=== PATIENT | male | born 1980 | race Caucasian/White ===

== ENCOUNTER 2016-11-16 21:05 | Emergency (ER) | payer OTHER ==
[2016-11-16 21:22] VITALS: TEMP 98.7
--- NOTE | 2016-11-16 21:47 | ED ---
General Adult HPI - General Chief complaint: Dizziness Stated complaint: Dizziness,Nosebleeds Time Seen by Provider: 11/16/16 21:20 Source: patient, RN notes reviewed, old records reviewed Mode of arrival: ambulatory Limitations: no limitations - History of Present Illness Initial comments: Chief complaint and history of present illness this is a 36-year-old male to complaint of right-sided nasal bleeding at up 3 times today. Currently under control. Patient reports this is been a young child he's always had right- sided nasal bleeding. - Related Data Home Medications Medication Instructions Recorded Confirmed No Known Home Medications [No 11/16/16 11/16/16 Known Home Medications] Allergies Allergy/AdvReac Type Severity Reaction Status Date / Time No Known Allergies Allergy Verified 11/16/16 21:22 Review of Systems ROS Statement: Those systems with pertinent positive or pertinent negative responses have been documented in the HPI. Review of systems. No headache or visual acuity changes no current epistaxis. No sore throat chest pain shows breath GI/ problems no neuro deficits. All systems are reviewed. Past medical problems significant for asthma hypertension and memory impairment. The patient reports he does not take any medication for his blood pressure. The patient also has a history of anxiety attacks he denies having any of late and does not take any medications for does not follow-up for. The patient is a former smoker denies alcohol use. Family history noncontributory. No known ALLERGIES ROS Other: All systems not noted in ROS Statement are negative. Past Medical History Past Medical History: Asthma, Hypertension, Memory Impairment Additional Past Medical History / Comment(s): back pain, anxiety attacks, arthritis in back History of Any Multi-Drug Resistant Organisms: None Reported Past Surgical History: No Surgical Hx Reported Past Anesthesia/Blood Transfusion Reactions: No Reported Reaction Past Psychological History: Anxiety, Panic Disorder Smoking Status: Former smoker Past Alcohol Use History: None Reported Past Drug Use History: None Reported General Exam - General Exam Comments Initial Comments: General: The patient is awake and alert, in no distress, and does not appear acutely ill. Here because of bleeding from the right nares which controlled. The patient is morbidly obese weighing 400 pounds. Eye: Pupils are equal, round and reactive to light, extra-ocular movements are intact ; there is normal conjunctiva bilaterally. No signs of icterus. Ears, nose, mouth and throat: There are moist mucous membranes and no oral lesions. Patient has 1 small spot on the inner anterior Them as a small blood clot. This area was cauterized with silver nitrate. Neck: The neck is supple, there is no tenderness . Cardiovascular: There is a regular rate and rhythm. No murmur, rub or gallop is appreciated. Respiratory: Lungs are clear to auscultation, respirations are non-labored, breath sounds are equal. No wheezes, stridor, rales, or rhonchi. Gastrointestinal: No complaint of nausea vomiting or diarrhea Back: No complaint of back pain no weakness. No neuro deficits. Alert and oriented. Limitations: no limitations Course Vital Signs 11/16/16 21:20 Temperature 98.7 F Pulse Rate 108 H Respiratory 20 Rate Blood Pressure 162/77 O2 Sat by Pulse 98 Oximetry Procedures - Procedures Initial comment: Over nitrate sticks were used to cauterize the small spot on the inner right septum. Patient was observed. Dr. Kelley Medical Decision Making - Medical Decision Making Medical decision-making. After the septum was cauterized with silver nitrate the patient spent half hour without any bleeding. Don't be discharged to follow -up with family physician or return emergency room as needed. Disposition Clinical Impression: Anterior epistaxis Disposition: HOME SELF-CARE Condition: Stable Instructions: Nosebleed (ED) Additional Instructions: Return emergency room as needed use nasal clamp as directed. Follow-up family physician. Time of Disposition: 22:22
[2016-11-16 22:29] VITALS: BP 153/73; PULSE 100; RESP 18
== END 2016-11-16 22:29 | disposition home or self-care (01) ==
LOC: EC 21:05
DX: R04.0 Epistaxis (principal); R42 Dizziness and giddiness; E66.01 Morbid (severe) obesity due to excess calories; Z87.891 Personal history of nicotine dependence; Z68.44 Body mass index [BMI] 60.0-69.9, adult
CPT/HCPCS: 30901; 99284

== ENCOUNTER 2017-06-16 15:37 | Emergency (ER) | payer OTHER ==
[2017-06-16 15:43] VITALS: BP 172/91; PULSE 85; RESP 18; TEMP 98.9
--- NOTE | 2017-06-16 16:22 | ED ---
General Adult HPI - General Chief complaint: ENT Stated complaint: throat congestion Time Seen by Provider: 06/16/17 16:00 Source: patient Mode of arrival: ambulatory Limitations: no limitations - History of Present Illness Initial comments: Abena is a 36-year-old morbidly obese male who presents to the emergency department today for evaluation of body sensation in his throat. Patient reports for approximately the past couple of weeks he's been experiencing URI- like sensation with pressure in his ears and sinus drainage. Patient reports that yesterday evening he began feeling as though there is a lump in his anterior throat. He reports the sensation feels more prominent when he feels his anterior neck. He reports that feeling the sensation made him very anxious and he became nauseated and vomited once last night. He reports that despite having this foreign body sensation he has been able to eat and drink without difficulty, he is able to breathe without any sensation of tightness in his throat or neck. He reports he otherwise feels well aside from intermittently feeling as though there is a lump in his throat, he states that when he feels that he becomes very anxious which prompted him to come to the emergency department for further evaluation. Jewels does report that recently he has noted small white chunks of material that he seems to cough out of his throat. He reports here foul-smelling and uncomfortable. He reports he feels like to come out of his throat. He reports he is only noticed this in the past few months. He does not feel that this is related to the lump he is feeling today. Jewels does report that he has been told by his primary care physician in the past that he needs to be evaluated for sleep apnea, however he has not completed his sleep study as of yet. He does report that he snores at night. - Related Data Home Medications Medication Instructions Recorded Confirmed Sertraline [Zoloft] 100 mg PO DAILY 06/16/17 06/16/17 Allergies Allergy/AdvReac Type Severity Reaction Status Date / Time No Known Allergies Allergy Verified 06/16/17 16:10 Review of Systems ROS Statement: Those systems with pertinent positive or pertinent negative responses have been documented in the HPI. ROS Other: All systems not noted in ROS Statement are negative. Constitutional: Denies: fever, chills Eyes: Denies: vision change ENT: Reports: congestion. Denies: ear pain, throat pain, dental pain, hearing loss, epistaxis Respiratory: Denies: cough, dyspnea, wheezes, stridor Cardiovascular: Denies: chest pain, palpitations Endocrine: Denies: fatigue Gastrointestinal: Reports: vomiting. Denies: abdominal pain, nausea Genitourinary: Denies: urgency, dysuria Musculoskeletal: Denies: back pain Skin: Denies: rash, lesions Neurological: Denies: headache, weakness Psychiatric: Reports: anxiety. Denies: depression Hematological/Lymphatic: Denies: easy bleeding, easy bruising Past Medical History Past Medical History: Asthma, Hypertension, Memory Impairment Additional Past Medical History / Comment(s): back pain, anxiety attacks, arthritis in back History of Any Multi-Drug Resistant Organisms: None Reported Past Surgical History: No Surgical Hx Reported Past Anesthesia/Blood Transfusion Reactions: No Reported Reaction Past Psychological History: Anxiety, Panic Disorder Smoking Status: Light tobacco smoker Past Alcohol Use History: None Reported Past Drug Use History: None Reported General Exam Limitations: no limitations General appearance: alert, in no apparent distress Head exam: Present: atraumatic, normocephalic Eye exam: Present: normal appearance, PERRL, EOMI ENT exam: Present: normal exam, normal oropharynx, mucous membranes moist, TM's normal bilaterally. Absent: mucous membranes dry Expanded Mouth exam: Present: normal external inspection, tongue normal. Absent: drooling, trismus, muffled voice, tongue elevation, laceration Teeth exam: Present: normal inspection. Absent: gingival enlargement Throat exam: normal inspection, other (Tonsils are normal, uvula is midline, there is no evidence of infection, erythema or angioedema.). negative: tonsillar erythema, tonsillomegaly, tonsillar exudate, R peritonsillar mass, L peritonsillar mass Neck exam: Present: other (obese neck with palpable thyroid) Respiratory exam: Present: normal lung sounds bilaterally. Absent: respiratory distress Cardiovascular Exam: Present: regular rate, normal rhythm GI/Abdominal exam: Present: soft Rectal exam: Present: deferred Extremities exam: Present: normal inspection, full ROM Back exam: Present: normal inspection Neurological exam: Present: alert, oriented X3, CN II-XII intact Psychiatric exam: Present: anxious Skin exam: Present: warm, dry Course Vital Signs 06/16/17 15:40 Temperature 98.9 F Pulse Rate 85 Respiratory 18 Rate Blood Pressure 172/91 O2 Sat by Pulse 98 Oximetry Medical Decision Making - Medical Decision Making The patient was seen and evaluated, history was obtained from the patient as well as fiance at bedside Physical exam reveals no acute findings, patient is nontoxic appearing Will order a x-ray of the soft tissues of the neck to evaluate Xrays with no acute findings Patient was patent airway, no evidence of airway obstruction, is able to eat and drink, is phonating normally This time I don't feel that there is any emergent intervention indicated for the patient's foreign body sensation in throat, I feel that he can follow up outpatient with primary care for possible thyroid ultrasound as well as follow- up with ENT as the patient is experiencing tonsilliths and foreign body sensation in throat. As ago exam and x-ray findings were discussed with the patient and family at bedside. All questions pertaining to care were answered to the best of my ability the patient was discharged home in stable condition. Disposition Clinical Impression: Sensation of foreign body in throat, Globus sensation Disposition: HOME SELF-CARE Condition: Good Instructions: Foreign Body in Pharynx (ED) Referrals: Sachin Childs MD [Primary Care Provider] - 1-2 days Hilton Greer DO [Doctor of Osteopathic Medicine] - 1-2 days Time of Disposition: 16:55
--- NOTE | 2017-06-16 16:38 | XR ---
EXAMINATION TYPE: XR soft tissue neck DATE OF EXAM: 06/16/2017 COMPARISON: 04/30/2012 HISTORY: Patient feels like she has a lump in his throat. TECHNIQUE: Lateral and frontal views of the neck soft tissues were obtained. FINDINGS: Cricoid and thyroid cartilage calcifications are seen. No radiopaque foreign body is identi fied. Cervical spine maintains its normal alignment. No prevertebral soft tissue swelling is seen. Ep iglottis and adenoids are within normal limits. IMPRESSION: Unremarkable radiograph of the neck soft tissues with no radiopaque foreign body identifi ed.
== END 2017-06-16 17:29 | disposition home or self-care (01) ==
LOC: EC 15:37
DX: F45.8 Other somatoform disorders (principal); R09.89 Other specified symptoms and signs involving the circulatory and respiratory systems; R11.2 Nausea with vomiting, unspecified; F41.0 Panic disorder [episodic paroxysmal anxiety]; F17.200 Nicotine dependence, unspecified, uncomplicated; Z79.899 Other long term (current) drug therapy
CPT/HCPCS: 70360; 99283

== ENCOUNTER 2018-01-07 18:37 | Emergency (ER) | payer OTHER ==
[2018-01-07 19:13] VITALS: BP 133/72
[2018-01-07] MEDS ORDERED: IBUPROFEN 600 MG TAB PO STA (19:16)
--- NOTE | 2018-01-07 19:21 | ED ---
URI HPI - General Chief Complaint: Upper Respiratory Infection Stated Complaint: sore throat Time Seen by Provider: 01/07/18 19:11 Source: patient, RN notes reviewed Mode of arrival: wheelchair Limitations: no limitations - History of Present Illness Initial Comments: This is a 37-year-old male who presents to the emergency department with chief complaint of upper respiratory symptoms. Patient states that this morning he developed a dry sore throat, right ear pain, headache, nasal congestion and body aches. He states that he developed a fever and took Tylenol at 4 PM this evening. He also states that he took Sudafed this morning. Denies shortness of breath or chest pain, abdominal pain, nausea or vomiting, diarrhea or constipation, dysuria or hematuria, dizziness. Denies sick contacts. Denies receiving the influenza vaccination this year. - Related Data Home Medications Medication Instructions Recorded Confirmed Sertraline [Zoloft] 100 mg PO DAILY 06/16/17 06/16/17 Previous Rx's Medication Instructions Recorded Azithromycin [Zithromax Z-pack] 0 mg PO DIRECTED #6 tab 01/07/18 Allergies Allergy/AdvReac Type Severity Reaction Status Date / Time No Known Allergies Allergy Verified 01/07/18 19:11 Review of Systems ROS Statement: Those systems with pertinent positive or pertinent negative responses have been documented in the HPI. ROS Other: All systems not noted in ROS Statement are negative. Past Medical History Past Medical History: Asthma, Hypertension, Memory Impairment Additional Past Medical History / Comment(s): back pain, anxiety attacks, arthritis in back History of Any Multi-Drug Resistant Organisms: None Reported Past Surgical History: No Surgical Hx Reported Past Anesthesia/Blood Transfusion Reactions: No Reported Reaction Past Psychological History: Anxiety, Panic Disorder Smoking Status: Light tobacco smoker Past Alcohol Use History: None Reported Past Drug Use History: None Reported General Exam - General Exam Comments Initial Comments: General: Awake and alert, well-developed; in no apparent distress. Does not appear acutely ill. Morbidly obese. HEENT: Head atraumatic, normocephalic. Pupils are equal, round and reactive to light. Extraocular movements intact. Oropharynx moist without erythema or exudate. Unable to visualize TMs due to cerumen impaction. Neck: Supple. Normal ROM. Cardiovascular: Regular rate and rhythm. No murmurs, rubs or gallops. Chest symmetrical. Respiratory: Lungs clear to auscultation bilaterally. No wheezes, rales or rhonchi. Normal respiratory effort with no use of accessory muscles. Musculoskeletal: Normal ROM, no tenderness bilateral upper and lower extremities. Ambulating normally. Skin: [place], warm and dry without rashes or lesions. Neurological: Alert and oriented x3. CN II-XII grossly intact. Speech is fluent and answers are appropriate. No focal neuro deficits. Psychiatric: Normal mood and affect. No overt signs of depression or anxiety noted. Limitations: no limitations Course Vital Signs 01/07/18 19:11 Temperature 101.0 F H Pulse Rate 121 H Respiratory 20 Rate Blood Pressure 133/72 O2 Sat by Pulse 95 Oximetry Medical Decision Making - Medical Decision Making This is a 37-year-old male who presents to the emergency department with chief complaint of upper respiratory symptoms that started this morning. He complains of sore throat, headache, body aches and facial congestion. He also developed a fever today. Patient denies cough and he is a nonsmoker. On presentation, patient did have a fever of 101. Prior to arrival he did take Tylenol. He was given a dose of ibuprofen in the emergency department. Influenza and strep were negative. Patient appears well. Lungs are clear to auscultation bilaterally. I was unable to visualize the right TM due to cerumen impaction. However, because of fever and complaint of ear pain, patient will be treated for an acute otitis media with azithromycin. Patient is in agreement with plan and voices understanding. All questions were answered. - Lab Data Lab Results 01/07/18 01/07/18 Range/Units 19:15 19:15 Influenza Type A RNA Not Detected (Not Detectd) Influenza Type B (PCR) Not Detected (Not Detectd) Group A Strep Rapid Negative (Negative) Disposition Clinical Impression: Otitis media Disposition: HOME SELF-CARE Condition: Good Instructions: Otitis Media (ED) Additional Instructions: Please take medications as prescribed. Please follow up with primary care provider within 1-2 days. Return to emergency department if symptoms should worsen or any concerns arise. Prescriptions: Azithromycin [Zithromax Z-pack] 0 mg PO DIRECTED #6 tab Is patient prescribed a controlled substance at d/c from ED?: No Referrals: None,Stated [REFERRING] - 1-2 days Time of Disposition: 20:00
[2018-01-07 20:09] VITALS: PULSE 97; RESP 18; TEMP 100
== END 2018-01-07 20:09 | disposition home or self-care (01) ==
LOC: EC 18:37
DX: H66.91 Otitis media, unspecified, right ear (principal); R09.81 Nasal congestion; M79.1 Myalgia; F41.0 Panic disorder [episodic paroxysmal anxiety]; E66.01 Morbid (severe) obesity due to excess calories; Z68.44 Body mass index [BMI] 60.0-69.9, adult; F17.200 Nicotine dependence, unspecified, uncomplicated; Z79.899 Other long term (current) drug therapy
CPT/HCPCS: 87081; 87430; 87502; 99283

== ENCOUNTER 2018-09-17 14:58 | Emergency (ER) | payer OTHER ==
[2018-09-17] MEDS ORDERED: DEXAMETHASONE SOD PHOSPHATE 10 MG/ML 1 ML VIAL IV STA (15:16)
[2018-09-17] MEDS ORDERED: ALBUTEROL NEBULIZED 2.5 MG/3 ML INHALATION STA (15:16)
[2018-09-17] MEDS ORDERED: SODIUM CHLORIDE 0.9% 500 ML 500 ML IV ONE (15:17)
--- NOTE | 2018-09-17 15:48 | ED ---
General Adult HPI - General Source: patient, RN notes reviewed, old records reviewed Mode of arrival: ambulatory Limitations: no limitations <Chago Bacon - Last Filed: 09/17/18 17:21> <Chase Santacruz - Last Filed: 09/17/18 18:50> - General Chief complaint: Chest Pain Stated complaint: mandi; chest tightness Time Seen by Provider: 09/17/18 15:10 - History of Present Illness Initial comments: 38-year-old male presenting for evaluation of URI symptoms and chest tightness. Patient's symptoms have been ongoing for the past several days. He does have positive sick contacts with similar cough and congestion. Denies fever or chills. He reports some vomiting as well as diarrhea. He's had sputum production. He has history of exercise-induced asthma has been taking his albuterol at home with some improvement in chest tightness. Denies central chest pain. He is also been somewhat dizzy which she attributes to his URI symptoms. His been taking Claritin with minimal improvement. (Chago Bacon) - Related Data Home Medications Medication Instructions Recorded Confirmed Ibuprofen [Motrin Ib] 400 mg PO Q6H PRN 09/17/18 09/17/18 Loratadine [Claritin] 10 mg PO DAILY 09/17/18 09/17/18 Allergies Allergy/AdvReac Type Severity Reaction Status Date / Time No Known Allergies Allergy Verified 09/17/18 15:19 Review of Systems ROS Other: All systems not noted in ROS Statement are negative. <Chago Bacon - Last Filed: 09/17/18 17:21> ROS Other: All systems not noted in ROS Statement are negative. <Chase Santacruz - Last Filed: 09/17/18 18:50> ROS Statement: Those systems with pertinent positive or pertinent negative responses have been documented in the HPI. Past Medical History Past Medical History: Asthma, Hypertension, Memory Impairment Additional Past Medical History / Comment(s): back pain, anxiety attacks, arthritis in back History of Any Multi-Drug Resistant Organisms: None Reported Past Surgical History: No Surgical Hx Reported Past Anesthesia/Blood Transfusion Reactions: No Reported Reaction Past Psychological History: Anxiety, Panic Disorder Smoking Status: Former smoker Past Alcohol Use History: None Reported Past Drug Use History: None Reported <Chago Bacon - Last Filed: 09/17/18 17:21> General Exam Limitations: no limitations General appearance: alert, in no apparent distress Head exam: Present: atraumatic, normocephalic Eye exam: Present: normal appearance, PERRL ENT exam: Present: other (nasal congestion, mild pharyngeal erythema). Absent: TM's normal bilaterally (Bilateral external auditory canal occluded by cerumen) Neck exam: Present: normal inspection. Absent: tenderness Respiratory exam: Present: normal lung sounds bilaterally. Absent: respiratory distress, wheezes, rhonchi Cardiovascular Exam: Present: regular rate, normal rhythm GI/Abdominal exam: Present: soft. Absent: distended, tenderness Extremities exam: Present: normal inspection, normal capillary refill. Absent: pedal edema Neurological exam: Present: alert, oriented X3, CN II-XII intact. Absent: motor sensory deficit Psychiatric exam: Present: normal affect, normal mood Skin exam: Present: warm, dry, intact. Absent: cyanosis, diaphoretic <Chago Bacon Mandy - Last Filed: 09/17/18 17:21> General appearance: alert, in no apparent distress Head exam: Present: atraumatic, normocephalic, normal inspection Eye exam: Present: normal appearance, PERRL, EOMI. Absent: scleral icterus, conjunctival injection, periorbital swelling ENT exam: Present: normal exam, mucous membranes moist Neck exam: Present: normal inspection. Absent: tenderness, meningismus, lymphadenopathy Respiratory exam: Present: normal lung sounds bilaterally. Absent: respiratory distress, wheezes, rales, rhonchi, stridor Cardiovascular Exam: Present: normal rhythm, tachycardia, normal heart sounds. Absent: systolic murmur, diastolic murmur, rubs, gallop, clicks GI/Abdominal exam: Present: soft, normal bowel sounds. Absent: distended, tenderness, guarding, rebound, rigid Extremities exam: Present: normal inspection, full ROM, normal capillary refill. Absent: tenderness, pedal edema, joint swelling, calf tenderness Back exam: Present: normal inspection Neurological exam: Present: alert, oriented X3, CN II-XII intact Psychiatric exam: Present: normal affect, normal mood Skin exam: Present: warm, dry, intact, normal color. Absent: rash <Chase Santacruz - Last Filed: 09/17/18 18:50> Course <Chago Bacon - Last Filed: 09/17/18 17:21> <Chase Santacruz - Last Filed: 09/17/18 18:50> Vital Signs 09/17/18 09/17/18 09/17/18 15:01 16:47 17:24 Temperature 98 F Pulse Rate 116 H 95 110 H Respiratory 20 18 Rate Blood Pressure 165/100 126/88 O2 Sat by Pulse 96 96 Oximetry 09/17/18 17:32 Temperature Pulse Rate 110 H Respiratory Rate Blood Pressure O2 Sat by Pulse Oximetry - Reevaluation(s) Reevaluation #1: 09/17/18 17:21 Patient's care is signed out to Dr. Santacruz at shift change awaiting CT angiography. (Chago Bacon) Reevaluation #2: 09/17/18 18:50 Patient is in no acute distress denies current chest pain (Chase Santacruz) EKG Findings - EKG Comments: EKG Findings:: EKG: Sinus tachycardia, rate of 104, RI interval 162, QRS duration 96, QTC 460, no ST segment changes <Chago Bacon - Last Filed: 09/17/18 17:21> Medical Decision Making - Lab Data Result diagrams: 09/17/18 15:38 09/17/18 15:38 <Chago Bacon - Last Filed: 09/17/18 17:21> - Lab Data Result diagrams: 09/17/18 15:38 09/17/18 15:38 - Radiology Data Radiology results: report reviewed (Chest x-ray and CT is negative for acute disease), image reviewed <Chase Santacruz - Last Filed: 09/17/18 18:50> - Medical Decision Making Mark male the ER with nonspecific chest pain. Patient has underlying likely underlying viral infection. CT chest is negative for acute disease labwork is otherwise normal and patient can be discharged home (Chase Santacruz) - Lab Data Lab Results 09/17/18 09/17/18 09/17/18 Range/Units 15:38 15:38 15:38 WBC 10.1 (3.8-10.6) k/uL RBC 4.63 (4.30-5.90) m/uL Hgb 13.0 (13.0-17.5) gm/dL Hct 38.9 L (39.0-53.0) % MCV 84.2 (80.0-100.0) fL MCH 28.1 (25.0-35.0) pg MCHC 33.3 (31.0-37.0) g/dL RDW 15.3 (11.5-15.5) % Plt Count 272 (150-450) k/uL Neutrophils % 75 % Lymphocytes % 18 % Monocytes % 4 % Eosinophils % 1 % Basophils % 0 % Neutrophils # 7.5 (1.3-7.7) k/uL Lymphocytes # 1.9 (1.0-4.8) k/uL Monocytes # 0.4 (0-1.0) k/uL Eosinophils # 0.1 (0-0.7) k/uL Basophils # 0.0 (0-0.2) k/uL PT (9.0-12.0) sec INR (<1.2) APTT (22.0-30.0) sec D-Dimer (<0.60) mg/L FEU Sodium 143 (137-145) mmol/L Potassium 4.3 (3.5-5.1) mmol/L Chloride 108 H (98-107) mmol/L Carbon Dioxide 24 (22-30) mmol/L Anion Gap 11 mmol/L BUN 14 (9-20) mg/dL Creatinine 0.96 (0.66-1.25) mg/dL Est GFR (CKD-EPI)AfAm >90 (>60 ml/min/1.73 sqM) Est GFR (CKD-EPI)NonAf >90 (>60 ml/min/1.73 sqM) Glucose 118 H (74-99) mg/dL Calcium 8.0 L (8.4-10.2) mg/dL Magnesium 1.6 (1.6-2.3) mg/dL Total Bilirubin 0.6 (0.2-1.3) mg/dL AST 47 (17-59) U/L ALT 56 (21-72) U/L Alkaline Phosphatase 59 (38-126) U/L Total Creatine Kinase 82 (55-170) U/L CK-MB (CK-2) 0.3 (0.0-2.4) ng/mL CK-MB (CK-2) Rel Index 0.4 Troponin I <0.012 (0.000-0.034) ng/mL Total Protein 7.9 (6.3-8.2) g/dL Albumin 4.1 (3.5-5.0) g/dL Influenza Type A RNA (Not Detectd) Influenza Type B (PCR) (Not Detectd) 09/17/18 09/17/18 09/17/18 Range/Units 15:38 15:38 16:34 WBC (3.8-10.6) k/uL RBC (4.30-5.90) m/uL Hgb (13.0-17.5) gm/dL Hct (39.0-53.0) % MCV (80.0-100.0) fL MCH (25.0-35.0) pg MCHC (31.0-37.0) g/dL RDW (11.5-15.5) % Plt Count (150-450) k/uL Neutrophils % % Lymphocytes % % Monocytes % % Eosinophils % % Basophils % % Neutrophils # (1.3-7.7) k/uL Lymphocytes # (1.0-4.8) k/uL Monocytes # (0-1.0) k/uL Eosinophils # (0-0.7) k/uL Basophils # (0-0.2) k/uL PT 10.4 (9.0-12.0) sec INR 1.0 (<1.2) APTT 23.5 (22.0-30.0) sec D-Dimer 0.56 (<0.60) mg/L FEU Sodium (137-145) mmol/L Potassium (3.5-5.1) mmol/L Chloride (98-107) mmol/L Carbon Dioxide (22-30) mmol/L Anion Gap mmol/L BUN (9-20) mg/dL Creatinine (0.66-1.25) mg/dL Est GFR (CKD-EPI)AfAm (>60 ml/min/1.73 sqM) Est GFR (CKD-EPI)NonAf (>60 ml/min/1.73 sqM) Glucose (74-99) mg/dL Calcium (8.4-10.2) mg/dL Magnesium (1.6-2.3) mg/dL Total Bilirubin (0.2-1.3) mg/dL AST (17-59) U/L ALT (21-72) U/L Alkaline Phosphatase (38-126) U/L Total Creatine Kinase (55-170) U/L CK-MB (CK-2) (0.0-2.4) ng/mL CK-MB (CK-2) Rel Index Troponin I (0.000-0.034) ng/mL Total Protein (6.3-8.2) g/dL Albumin (3.5-5.0) g/dL Influenza Type A RNA Not Detected (Not Detectd) Influenza Type B (PCR) Not Detected (Not Detectd) Disposition <Chago Bacon - Last Filed: 09/17/18 17:21> Is patient prescribed a controlled substance at d/c from ED?: No <Chase Santacruz - Last Filed: 09/17/18 18:50> Clinical Impression: Chest pain Disposition: HOME SELF-CARE Condition: Good Instructions: Chest Pain (ED) Referrals: aSchin Childs MD [Primary Care Provider] - 1-2 days
--- NOTE | 2018-09-17 15:56 | XR ---
EXAMINATION TYPE: XR chest 2V DATE OF EXAM: 09/17/2018 COMPARISON: Prior chest x-ray 08/04/2016 HISTORY: Chest pain, difficulty breathing TECHNIQUE: Frontal and lateral views of the chest are obtained. FINDINGS: Lung volumes are low, and the patient is rotated. There are overlying cardiac leads. There is no focal air space opacity, pleural effusion, or pneumothorax seen. The cardiac silhouette size i s stable. There is a kyphosis centered at the lower thoracic spine. The osseous structures are intac t. IMPRESSION: No acute cardiopulmonary process.
[2018-09-17 16:16] LABS: Basophils % (A) 0 %; Eosinophils # (A) 0.1 k/uL (0-0.7); Eosinophils % (A) 1 %; HCT 38.9 % (39.0-53.0); Lymphocytes # (A) 1.9 k/uL (1.0-4.8); Lymphocytes % (A) 18 %; MCH 28.1 pg (25.0-35.0); MCHC 33.3 g/dL (31.0-37.0); MCV 84.2 fL (80.0-100.0); Mean Platelet Volume 7.6; Monocytes # (A) 0.4 k/uL (0-1.0); Monocytes % (A) 4 %; Neutrophils # (A) 7.5 k/uL (1.3-7.7); Neutrophils % (A) 75 %; Platelet Count 272 k/uL (150-450); RBC 4.63 m/uL (4.30-5.90); RDW 15.3 % (11.5-15.5); WBC 10.1 k/uL (3.8-10.6)
[2018-09-17 16:22] LABS: Partial Thromboplastin Time 23.5 sec (22.0-30.0); Prothrombin Time 10.4 sec (9.0-12.0)
[2018-09-17 16:26] LABS: ALT 56 U/L (21-72); AST 47 U/L (17-59); Albumin 4.1 g/dL (3.5-5.0); Alkaline Phosphatase 59 U/L (38-126); Anion Gap 11 mmol/L; Blood Urea Nitrogen 14 mg/dL (9-20); Carbon Dioxide 24 mmol/L (22-30); Chloride 108 mmol/L (98-107); Glucose 118 mg/dL (74-99); Magnesium 1.6 mg/dL (1.6-2.3); Potassium 4.3 mmol/L (3.5-5.1); Sodium 143 mmol/L (137-145); Total Bilirubin 0.6 mg/dL (0.2-1.3); Total Protein 7.9 g/dL (6.3-8.2)
[2018-09-17 16:29] LABS: Creatine Kinase 82 U/L (55-170)
[2018-09-17 16:39] LABS: Creatine Kinase MB 0.3 ng/mL (0.0-2.4); Troponin I <0.012 ng/mL (0.000-0.034)
[2018-09-17 16:48] VITALS: RESP 18
--- NOTE | 2018-09-17 18:12 | CT ---
EXAMINATION TYPE: CT angio chest DATE OF EXAM: 09/17/2018 6:03 PM COMPARISON: None HISTORY: LOR[facility] CT DLP: 1066.2 mGycm Automated exposure control for dose reduction was used. CONTRAST: CTA scan of the thorax is performed with IV Contrast, patient injected with 100 mL of Isovue 370, pul monary embolism protocol. There are 3-D post processed images.. FINDINGS: There is no mediastinal adenopathy. Thoracic aorta is intact without evidence of aneurysm or dissecti on. Heart appears enlarged. There is no pericardial effusion. There is no pleural effusion. The lungs are clear of consolidation. There is normal contrast opacification of the pulmonary arteries. I see no filling defect. There are no hilar masses. The bony thorax is intact. IMPRESSION: NO EVIDENCE OF PULMONARY EMBOLISM. MILD CARDIOMEGALY.
[2018-09-17] MEDS ORDERED: MAG HYDROX/AL HYDROX/SIMETH 30 ML, HYOSCYAMINE ELIXIR 10 ML, CIMETIDINE HCL 300 MG PO STA ×3 (18:15)
[2018-09-17 19:13] VITALS: BP 120/81; PULSE 100; TEMP 98.2
== END 2018-09-17 19:14 | disposition home or self-care (01) ==
LOC: EC 14:58
DX: R07.9 Chest pain, unspecified (principal); R05 Cough; R11.10 Vomiting, unspecified; R19.7 Diarrhea, unspecified; R09.81 Nasal congestion; R42 Dizziness and giddiness; J45.909 Unspecified asthma, uncomplicated; M19.90 Unspecified osteoarthritis, unspecified site; Z87.891 Personal history of nicotine dependence; Z79.899 Other long term (current) drug therapy
CPT/HCPCS: 36415; 94640; 93005; 85379; 80053; 82550; 82553; 83735; 84484; 85025; 85610; 85730; 87502; 71046; 71275; 99285; 96374; 96361; J1100; Q9967

== ENCOUNTER 2018-09-25 13:32 | Emergency (ER) | payer OTHER ==
[2018-09-25] MEDS ORDERED: KETOROLAC 30 MG/ML 1 ML VIAL IVP STA (14:23)
[2018-09-25] MEDS ORDERED: KETOROLAC 30 MG/ML 1 ML VIAL IM STA (14:35)
--- NOTE | 2018-09-25 14:43 | ED ---
General Adult HPI - General Chief complaint: Abdominal Pain Stated complaint: lt sided abd pain Time Seen by Provider: 09/25/18 14:08 Source: patient, RN notes reviewed, old records reviewed Mode of arrival: wheelchair Limitations: no limitations - History of Present Illness Initial comments: 38-year-old male presents for evaluation of left-sided abdominal pain. Patient' s pain has been presents for the past with 4 hours. Pain was severe at onset. Patient denies vomiting. Denies diarrhea. Symptoms initially began with urination. Denies dysuria or hematuria. Patient denies right-sided abdominal pain. Denies chest pain or dyspnea. Reports subjective fever and chills. - Related Data Home Medications Medication Instructions Recorded Confirmed Ibuprofen [Motrin Ib] 400 mg PO Q6H PRN 09/17/18 09/25/18 Albuterol Nebulized [Ventolin 2.5 mg INHALATION RT-Q4H PRN 09/25/18 09/25/18 Nebulized] Albuterol Sulfate [Proair Hfa] 1 - 2 puff INHALATION RT-Q4H PRN 09/25/18 Allergies Allergy/AdvReac Type Severity Reaction Status Date / Time No Known Allergies Allergy Verified 09/25/18 14:14 Review of Systems ROS Statement: Those systems with pertinent positive or pertinent negative responses have been documented in the HPI. ROS Other: All systems not noted in ROS Statement are negative. Past Medical History Past Medical History: Asthma, Hypertension, Memory Impairment Additional Past Medical History / Comment(s): back pain, anxiety attacks, arthritis in back History of Any Multi-Drug Resistant Organisms: None Reported Past Surgical History: No Surgical Hx Reported Past Anesthesia/Blood Transfusion Reactions: No Reported Reaction Past Psychological History: Anxiety, Panic Disorder Smoking Status: Former smoker Past Alcohol Use History: None Reported Past Drug Use History: None Reported General Exam Limitations: no limitations General appearance: alert, in no apparent distress Head exam: Present: atraumatic, normocephalic Eye exam: Present: normal appearance, PERRL, EOMI ENT exam: Present: normal exam Neck exam: Present: normal inspection. Absent: tenderness, meningismus Respiratory exam: Present: normal lung sounds bilaterally. Absent: respiratory distress, wheezes Cardiovascular Exam: Present: regular rate, normal rhythm GI/Abdominal exam: Present: soft, tenderness (Minimal left-sided tenderness to palpation). Absent: distended, guarding, rebound Extremities exam: Present: normal inspection, normal capillary refill. Absent: pedal edema Neurological exam: Present: alert, oriented X3, CN II-XII intact. Absent: motor sensory deficit Psychiatric exam: Present: normal affect, normal mood Skin exam: Present: warm, dry, intact. Absent: cyanosis, diaphoretic, erythema Course Vital Signs 09/25/18 13:55 Temperature 98.9 F Pulse Rate 95 Respiratory 16 Rate Blood Pressure 143/94 O2 Sat by Pulse 96 Oximetry - Reevaluation(s) Reevaluation #1: 09/25/18 17:50 Pain improved. 09/25/18 17:50 Medical Decision Making - Medical Decision Making 38-year-old male with left-sided abdominal pain. The patient well. He was stable vitals. X-rays obtained, limited exam over negative for any acute process. Patient has mildly elevated white blood cell count 14.0, recently completed course of steroids for bronchitis. Patient has a normal CMP, negative urinalysis with no hematuria. CT is obtained, does show some edema in the soft tissue of the abdomen with no acute intra-abdominal process. This edema is bilateral. Uncertain if this is a developing infection, cellulitis. No external signs cellulitis the time my evaluation. Patient will monitor symptoms, follow-up with primary care physician, return with worsening or changing symptoms. - Lab Data Result diagrams: 09/25/18 14:32 09/25/18 14:30 Lab Results 09/25/18 09/25/18 09/25/18 Range/Units 14:30 14:30 14:32 WBC 14.0 H (3.8-10.6) k/uL RBC 4.85 (4.30-5.90) m/uL Hgb 13.4 (13.0-17.5) gm/dL Hct 40.6 (39.0-53.0) % MCV 83.8 (80.0-100.0) fL MCH 27.6 (25.0-35.0) pg MCHC 33.0 (31.0-37.0) g/dL RDW 15.2 (11.5-15.5) % Plt Count 274 (150-450) k/uL Neutrophils % 77 % Lymphocytes % 16 % Monocytes % 4 % Eosinophils % 2 % Basophils % 0 % Neutrophils # 10.9 H (1.3-7.7) k/uL Lymphocytes # 2.2 (1.0-4.8) k/uL Monocytes # 0.6 (0-1.0) k/uL Eosinophils # 0.3 (0-0.7) k/uL Basophils # 0.1 (0-0.2) k/uL Sodium 140 (137-145) mmol/L Potassium 4.7 (3.5-5.1) mmol/L Chloride 105 (98-107) mmol/L Carbon Dioxide 27 (22-30) mmol/L Anion Gap 8 mmol/L BUN 15 (9-20) mg/dL Creatinine 0.87 (0.66-1.25) mg/dL Est GFR (CKD-EPI)AfAm >90 (>60 ml/min/1.73 sqM) Est GFR (CKD-EPI)NonAf >90 (>60 ml/min/1.73 sqM) Glucose 96 (74-99) mg/dL Calcium 8.6 (8.4-10.2) mg/dL Total Bilirubin 0.7 (0.2-1.3) mg/dL AST 48 (17-59) U/L ALT 78 H (21-72) U/L Alkaline Phosphatase 55 (38-126) U/L Total Protein 7.7 (6.3-8.2) g/dL Albumin 4.0 (3.5-5.0) g/dL Amylase 36 (30-110) U/L Lipase 151 (23-300) U/L Urine Color Yellow Urine Appearance Clear (Clear) Urine pH 6.5 (5.0-8.0) Ur Specific Neal 1.011 (1.001-1.035) Urine Protein Negative (Negative) Urine Glucose (UA) Negative (Negative) Urine Ketones Negative (Negative) Urine Blood Negative (Negative) Urine Nitrite Negative (Negative) Urine Bilirubin Negative (Negative) Urine Urobilinogen <2.0 (<2.0) mg/dL Ur Leukocyte Esterase Negative (Negative) Disposition Clinical Impression: Abdominal pain Disposition: HOME SELF-CARE Condition: Good Instructions (If sedation given, give patient instructions): Abdominal Pain (ED ) Is patient prescribed a controlled substance at d/c from ED?: No Referrals: Esvin Harvey Jr, [Primary Care Provider] - 1-2 days Time of Disposition: 17:51
[2018-09-25 14:48] LABS: Basophils # (A) 0.1 k/uL (0-0.2); Basophils % (A) 0 %; Eosinophils # (A) 0.3 k/uL (0-0.7); Eosinophils % (A) 2 %; HCT 40.6 % (39.0-53.0); HGB 13.4 gm/dL (13.0-17.5); Lymphocytes # (A) 2.2 k/uL (1.0-4.8); Lymphocytes % (A) 16 %; MCH 27.6 pg (25.0-35.0); MCV 83.8 fL (80.0-100.0); Mean Platelet Volume 6.7; Monocytes # (A) 0.6 k/uL (0-1.0); Monocytes % (A) 4 %; Neutrophils # (A) 10.9 k/uL (1.3-7.7); Neutrophils % (A) 77 %; Platelet Count 274 k/uL (150-450); RBC 4.85 m/uL (4.30-5.90); RDW 15.2 % (11.5-15.5)
[2018-09-25 14:51] LABS: Appearance,Urine Clear (Clear); Bilirubin,Urine Negative (Negative); Blood,Urine Negative (Negative); Color,Urine Yellow; Glucose,Urine (UA) Negative (Negative); Ketones,Urine Negative (Negative); Leukocyte Esterase,Urine Negative (Negative); Nitrite,Urine Negative (Negative); PH, Urine 6.5 (5.0-8.0); Protein,Urine Negative (Negative); Specific Gravity,Urine 1.011 (1.001-1.035); Urobilinogen,Urine <2.0 mg/dL (<2.0)
[2018-09-25 15:05] LABS: ALT 78 U/L (21-72); AST 48 U/L (17-59); Alkaline Phosphatase 55 U/L (38-126); Amylase 36 U/L (30-110); Anion Gap 8 mmol/L; Blood Urea Nitrogen 15 mg/dL (9-20); Calcium 8.6 mg/dL (8.4-10.2); Carbon Dioxide 27 mmol/L (22-30); Chloride 105 mmol/L (98-107); Glucose 96 mg/dL (74-99); Lipase 151 U/L (23-300); Potassium 4.7 mmol/L (3.5-5.1); Sodium 140 mmol/L (137-145); Total Bilirubin 0.7 mg/dL (0.2-1.3); Total Protein 7.7 g/dL (6.3-8.2)
--- NOTE | 2018-09-25 15:11 | XR ---
Abdomen HISTORY: Pain Frontal view of the abdomen submitted on 3 images No comparisons There is no evident pneumoperitoneum or bowel obstruction. Lung bases are clear. Exam is somewhat prabhakar ited technically. Difficult to exclude calcifications. Slight spinal curvature may be positional. IMPRESSION: No acute abnormalities evident, limitations as described.
--- NOTE | 2018-09-25 17:39 | CT ---
EXAMINATION TYPE: CT abdomen pelvis wo con DATE OF EXAM: 09/25/2018 COMPARISON: None HISTORY: Left sided abdominal pain x2 days. CT DLP: 3067.4 mGycm Automated exposure control for dose reduction was used. TECHNIQUE: Helical acquisition of images was performed from the lung bases through the pelvis. FINDINGS: Lung bases are clear. There is no pleural effusion. Heart size is normal. Liver spleen pancreas gallbladder appear normal. Bile ducts are not dilated. There is no adrenal mass . The kidneys have normal size and contour. There is no hydronephrosis. There is no evidence of a daryn al mass. There is no retroperitoneal adenopathy. The bladder distends smoothly. There is no free fluid in the pelvis. Exam is limited by the patient s ize. There is no inguinal hernia. The appendix appears normal. I see no intestinal wall thickening. T here are no dilated loops. There is no ascites. There is no evidence of free air. There is small umbi lical hernia that contains fat. There is no mesenteric edema or adenopathy. There is no sign of a bow el obstruction. The bony structures are intact. There is no lumbar compression fracture. Bony pelvis is intact.. IMPRESSION: NEGATIVE CT SCAN OF THE ABDOMEN AND PELVIS. I DO NOT SEE A CAUSE FOR LEFT-SIDED ABDOMINAL PAIN. LIMIT ED EXAM DUE TO THE PATIENT'S SIZE. THERE IS SUBCUTANEOUS EDEMA OVER THE LATERAL ABDOMEN BILATERALLY N OTED.
[2018-09-25 18:39] VITALS: BP 146/93; PULSE 86; RESP 18; TEMP 99.1
== END 2018-09-25 18:45 | disposition home or self-care (01) ==
LOC: EC 13:32
DX: R10.9 Unspecified abdominal pain (principal); D72.829 Elevated white blood cell count, unspecified; R60.0 Localized edema; R50.9 Fever, unspecified; J45.909 Unspecified asthma, uncomplicated; G31.84 Mild cognitive impairment of uncertain or unknown etiology; Z87.891 Personal history of nicotine dependence; Z53.8 Procedure and treatment not carried out for other reasons; Z87.09 Personal history of other diseases of the respiratory system
CPT/HCPCS: 36415; 80053; 82150; 83690; 85025; 81003; 74018; 74176; 99285; 96372; J1885

== ENCOUNTER 2019-05-24 19:55 | Emergency (ER) | payer OTHER ==
[2019-05-24 20:02] VITALS: TEMP 98.2
--- NOTE | 2019-05-24 20:35 | ED ---
Neck Injury/Pain HPI - General Chief Complaint: Neck Pain/Injury Stated Complaint: feels like somethings stuck in throat, neck pain Time Seen by Provider: 05/24/19 20:28 Mode of arrival: ambulatory Limitations: no limitations - History of Present Illness Initial Comments: 38-year-old male presenting for multiple complaints. Patient states in his anterior throat and has been scratchy and as though there is an enlarging mass. Patient states everyone is household has been sick. Patient states that this feels slightly different than just having a sore throat. Patient has a lip or tongue swelling denies any rash or other signs of ALLERGIC reaction. He states he does not feel as though he has ALLERGIC reaction to anything. He states has been ongoing for the past month. Patient also states that he has pain in the posterior right side of his neck he states he feels that he felt his neck while he states that increases with range of motion. Patient denies any fever he denies any photophobia headache dizziness nausea vomiting states that these 2 complaints Feel connected. Remaining review of system negative. Patient denies any chest pain shortness of breath cough congestion or any other complaints. Patient appears well upon arrival no distress tolerating oral secretions. - Related Data Home Medications Medication Instructions Recorded Confirmed Ibuprofen [Motrin Ib] 400 mg PO Q6H PRN 09/17/18 09/25/18 Albuterol Nebulized [Ventolin 2.5 mg INHALATION RT-Q4H PRN 09/25/18 09/25/18 Nebulized] Albuterol Sulfate [Proair Hfa] 1 - 2 puff INHALATION RT-Q4H PRN 09/25/18 09/25/18 Allergies Allergy/AdvReac Type Severity Reaction Status Date / Time No Known Allergies Allergy Verified 05/24/19 20:02 Review of Systems ROS Statement: Those systems with pertinent positive or pertinent negative responses have been documented in the HPI. ROS Other: All systems not noted in ROS Statement are negative. Past Medical History Past Medical History: Asthma, Hypertension, Memory Impairment Additional Past Medical History / Comment(s): back pain, anxiety attacks, arthritis in back History of Any Multi-Drug Resistant Organisms: None Reported Past Surgical History: No Surgical Hx Reported Past Anesthesia/Blood Transfusion Reactions: No Reported Reaction Past Psychological History: Anxiety, Panic Disorder Smoking Status: Former smoker Past Alcohol Use History: None Reported Past Drug Use History: None Reported General Exam - General Exam Comments Initial Comments: General: The patient is awake and alert, in no distress, and does not appear acutely ill. Eye: +3 mm pupils are equal, round and reactive to light, extra-ocular movements are intact. No nystagmus. There is normal conjunctiva bilaterally. No signs of icterus. No photophobia Ears, nose, mouth and throat: There are moist mucous membranes and no oral lesions. Oropharynx was not erythematous there is no tonsillar enlargement exudates or lesions. Uvula midline. Tympanic membranes are not erythematous or is no effusions bulging or retraction. No tenderness to palpation of the mastoid. No anterior cervical lymphadenopathy. No tripoding, no drooling. Neck: The neck is supple, there is no tenderness or JVD. No nuchal rigidity negative Cardiovascular: There is a regular rate and rhythm. No murmur, rub or gallop is appreciated. Respiratory: Lungs are clear to auscultation, respirations are non-labored, breath sounds are equal. No wheezes, stridor, rales, or rhonchi. No retractions or abdominal breathing. Gastrointestinal: Soft, non-distended, non-tender abdomen without masses or organomegaly noted. There is no rebound or guarding present. Bowel sounds are unremarkable. Musculoskeletal: Normal ROM, no tenderness. Strength 5/5. Sensation intact. Radial pulses equal bilaterally 2+. Neurological: A&O x 3. CN II-XII intact grossly, There are no obvious motor or sensory deficits. Coordination appears grossly intact. Speech appears normal, no muffling. Skin: Skin is warm and dry and no rashes or lesions are noted. No extremity edema Psychiatric: Cooperative Limitations: no limitations Course Vital Signs 05/24/19 05/24/19 19:59 22:33 Temperature 98.2 F Pulse Rate 110 H 102 H Respiratory 18 20 Rate Blood Pressure 154/98 118/81 O2 Sat by Pulse 96 98 Oximetry Medical Decision Making - Medical Decision Making 38-year-old male presenting for sensation of mass in throat 1 month as well as right-sided neck pain times one day. Patient states it feels as though he slept in his neck wrong as far as the right-sided posterior neck pain. Patient is no midmetatarsal palpation of the neck no nuchal rigidity or patient has pain over the sternocleidomastoid of the right neck that increases with range of motion to the right. Patient states he was not as concerned about this he states that was simply mentioned when he is asked about his complaints today patient states is more concerned the masslike sensation is throat for the past month Patient states he has had upper respiratory symptoms. Patient is afebrile and nontoxic- appearing no signs of distress tolerate oral secretions with uvula midline. No evidence of peritonsillar abscess or erythema of the oropharynx. She soft tissues and neck revealed no acute abnormalities. At this time do feel patient is stable for discharge with outpatient primary care follow-up patient is agreeable this care plan discharge at this time. - Lab Data Result diagrams: 05/24/19 21:18 05/24/19 21:18 Lab Results 05/24/19 05/24/19 Range/Units 21:18 21:18 WBC 13.2 H (3.8-10.6) k/uL RBC 4.93 (4.30-5.90) m/uL Hgb 13.1 (13.0-17.5) gm/dL Hct 40.9 (39.0-53.0) % MCV 82.9 (80.0-100.0) fL MCH 26.7 (25.0-35.0) pg MCHC 32.1 (31.0-37.0) g/dL RDW 15.6 H (11.5-15.5) % Plt Count 316 (150-450) k/uL Neutrophils % 73 % Lymphocytes % 18 % Monocytes % 4 % Eosinophils % 3 % Basophils % 1 % Neutrophils # 9.6 H (1.3-7.7) k/uL Lymphocytes # 2.4 (1.0-4.8) k/uL Monocytes # 0.6 (0-1.0) k/uL Eosinophils # 0.3 (0-0.7) k/uL Basophils # 0.2 (0-0.2) k/uL Sodium 138 (137-145) mmol/L Potassium 4.4 (3.5-5.1) mmol/L Chloride 102 (98-107) mmol/L Carbon Dioxide 23 (22-30) mmol/L Anion Gap 13 mmol/L BUN 15 (9-20) mg/dL Creatinine 0.98 (0.66-1.25) mg/dL Est GFR (CKD-EPI)AfAm >90 (>60 ml/min/1.73 sqM) Est GFR (CKD-EPI)NonAf >90 (>60 ml/min/1.73 sqM) Glucose 119 H (74-99) mg/dL Calcium 9.0 (8.4-10.2) mg/dL Total Bilirubin 0.6 (0.2-1.3) mg/dL AST 34 (17-59) U/L ALT 38 (21-72) U/L Alkaline Phosphatase 60 (38-126) U/L Total Protein 8.2 (6.3-8.2) g/dL Albumin 4.3 (3.5-5.0) g/dL Disposition Clinical Impression: Throat irritation, Neck muscle strain Disposition: HOME SELF-CARE Condition: Good Instructions (If sedation given, give patient instructions): Cervical Strain (ED), Postnasal Drip (DC) Additional Instructions: Please use medication as discussed. Please follow-up with family doctor in the next 2 days.. Please return to emergency room if the symptoms increase or worsen or for any other concerns. Is patient prescribed a controlled substance at d/c from ED?: No Referrals: Esvin Harvey Jr, [Primary Care Provider] - 1-2 days Time of Disposition: 22:16
[2019-05-24 21:26] LABS: Basophils # (A) 0.2 k/uL (0-0.2); Basophils % (A) 1 %; Eosinophils # (A) 0.3 k/uL (0-0.7); Eosinophils % (A) 3 %; HCT 40.9 % (39.0-53.0); HGB 13.1 gm/dL (13.0-17.5); Lymphocytes # (A) 2.4 k/uL (1.0-4.8); Lymphocytes % (A) 18 %; MCH 26.7 pg (25.0-35.0); MCHC 32.1 g/dL (31.0-37.0); MCV 82.9 fL (80.0-100.0); Mean Platelet Volume 7.2; Monocytes # (A) 0.6 k/uL (0-1.0); Monocytes % (A) 4 %; Neutrophils # (A) 9.6 k/uL (1.3-7.7); Neutrophils % (A) 73 %; Platelet Count 316 k/uL (150-450); RBC 4.93 m/uL (4.30-5.90); RDW 15.6 % (11.5-15.5); WBC 13.2 k/uL (3.8-10.6)
[2019-05-24 21:35] LABS: ALT 38 U/L (21-72); AST 34 U/L (17-59); African American GFR (CKD) >90 (>60 ml/min/1.73 sqM); Albumin 4.3 g/dL (3.5-5.0); Alkaline Phosphatase 60 U/L (38-126); Anion Gap 13 mmol/L; Blood Urea Nitrogen 15 mg/dL (9-20); Carbon Dioxide 23 mmol/L (22-30); Chloride 102 mmol/L (98-107); Glucose 119 mg/dL (74-99); Potassium 4.4 mmol/L (3.5-5.1); Sodium 138 mmol/L (137-145); Total Bilirubin 0.6 mg/dL (0.2-1.3); Total Protein 8.2 g/dL (6.3-8.2)
--- NOTE | 2019-05-24 22:12 | CT ---
EXAMINATION TYPE: CT soft tissue neck w con DATE OF EXAM: 05/24/2019 9:57 PM COMPARISON: None HISTORY: FB sensation in throat CT DLP: 922.8 mGycm Automated exposure control for dose reduction was used. CONTRAST: CT scan of the neck is performed following with IV Contrast, patient injected with 100 mL of Isovue 3 00. Axial images are obtained, coronal and sagittal reformatted images are reviewed. FINDINGS: There is normal branching pattern of the great vessels on the aortic arch. Thyroid gland is symmetric . Exam is limited by large patient size. Visualized trachea appears normal. Epiglottis is normal. I s ee no pathologic enhancement. Tonsils are within normal limits. There is no evidence of pharyngeal ma ss. I see no evidence of a foreign body of the nasopharynx and oropharynx. Adenoids appear normal. Th ere is no evidence of retropharyngeal mass. There is no pathologic enhancement. Cervical esophagus ap pears normal. Parotid glands are symmetric. Submandibular salivary glands are symmetric. I see no cervical adenopat hy. There is normal contrast opacification of carotid arteries and jugular veins. IMPRESSION: Negative CT scan of the cervical soft tissues.
[2019-05-24 22:34] VITALS: BP 118/81; PULSE 102; RESP 20
== END 2019-05-24 22:37 | disposition home or self-care (01) ==
LOC: EC 19:55
DX: S16.1XXA Strain of muscle, fascia and tendon at neck level, initial encounter (principal); J39.2 Other diseases of pharynx; J45.909 Unspecified asthma, uncomplicated; M46.90 Unspecified inflammatory spondylopathy, site unspecified; Z87.891 Personal history of nicotine dependence; Z79.1 Long term (current) use of non-steroidal anti-inflammatories (NSAID); Z79.899 Other long term (current) drug therapy; X50.1XXA Overexertion from prolonged static or awkward postures, initial encounter
CPT/HCPCS: 36415; 80053; 85025; 70491; 99284; Q9967

== ENCOUNTER 2019-10-10 10:53 | Emergency (ER) | payer OTHER ==
[2019-10-10 11:03] VITALS: TEMP 99
[2019-10-10 11:45] LABS: Basophils # (A) 0.1 k/uL (0-0.2); Basophils % (A) 1 %; Eosinophils # (A) 0.1 k/uL (0-0.7); Eosinophils % (A) 1 %; HGB 13.4 gm/dL (13.0-17.5); Lymphocytes # (A) 1.5 k/uL (1.0-4.8); Lymphocytes % (A) 15 %; MCH 28.3 pg (25.0-35.0); MCHC 34.4 g/dL (31.0-37.0); MCV 82.3 fL (80.0-100.0); Mean Platelet Volume 8.5; Monocytes # (A) 0.5 k/uL (0-1.0); Monocytes % (A) 5 %; Neutrophils # (A) 7.7 k/uL (1.3-7.7); Neutrophils % (A) 77 %; Platelet Count 306 k/uL (150-450); Poikilocytosis Slight; RBC 4.74 m/uL (4.30-5.90); RDW 14.6 % (11.5-15.5)
--- NOTE | 2019-10-10 11:55 | ED ---
Neuro HPI - General Chief Complaint: Neuro Symptoms/Deficit Stated Complaint: LORNA Time Seen by Provider: 10/10/19 10:55 Source: EMS Mode of arrival: EMS Limitations: no limitations - History of Present Illness Is the patient presenting with stroke symptoms?: Yes Initial Comments: The patient is a 39-year-old male with past history of asthma and hypertension who presents emergency room with reported oral numbness and left upper extremity numbness. The patient states that he was eating breakfast when he had sudden onset of numbness in his left upper extremity. He also states that he felt weak. He attempted to grab something at the table however he was unable to. He is right hand dominant states that this is a weaker hand for him. Because of the symptoms that made him have an acute anxiety attack. He states that he became very short of breath and was breathing rapidly with a fast heart rate. His significant other attempted to give him an albuterol breathing treatment however the patient was so worked up that they called EMS. He was given a DuoNeb breathing treatment in route. He arrives and states that his symptoms have completely resolved at this time. He denies any headaches or visual changes. No blunt head trauma. No weakness in his left lower extremity. No ripping or tearing sensation to his back. Denies any chest pain or shortness of breath time. No other alleviating, precipitating or modifying factors - Related Data Home Medications: Home Medications Medication Instructions Recorded Confirmed Ibuprofen [Motrin Ib] 400 mg PO Q6H PRN 09/17/18 09/25/18 Albuterol Nebulized [Ventolin 2.5 mg INHALATION RT-Q4H PRN 09/25/18 09/25/18 Nebulized] Albuterol Sulfate [Proair Hfa] 1 - 2 puff INHALATION RT-Q4H PRN 09/25/18 09/25/18 Previous Rx's Medication Instructions Recorded Albuterol Inhaler [Ventolin Hfa 1 - 2 puff INHALATION RT-Q6H PRN 10/10/19 Inhaler] #1 inhaler Allergies/Adverse Reactions: Allergies Allergy/AdvReac Type Severity Reaction Status Date / Time No Known Allergies Allergy Verified 05/24/19 20:02 Review of Systems ROS Statement: Those systems with pertinent positive or pertinent negative responses have been documented in the HPI. ROS Other: All systems not noted in ROS Statement are negative. General Exam Limitations: no limitations General appearance: alert, in no apparent distress Head exam: Present: atraumatic, normocephalic, normal inspection Eye exam: Present: normal appearance, PERRL, EOMI. Absent: scleral icterus, conjunctival injection, periorbital swelling ENT exam: Present: normal exam, mucous membranes moist Neck exam: Present: normal inspection. Absent: tenderness, meningismus, ly mphadenopathy Respiratory exam: Present: normal lung sounds bilaterally. Absent: respiratory distress, wheezes, rales, rhonchi, stridor Cardiovascular Exam: Present: regular rate, normal rhythm, normal heart sounds. Absent: systolic murmur, diastolic murmur, rubs, gallop, clicks GI/Abdominal exam: Present: soft, normal bowel sounds. Absent: distended, tenderness, guarding, rebound, rigid Extremities exam: Present: normal inspection, full ROM, normal capillary refill, other (5/5 muscle strength in all 4 extremities). Absent: tenderness, pedal edema, joint swelling, calf tenderness Back exam: Present: normal inspection Neurological exam: Present: alert, oriented X3, CN II-XII intact Psychiatric exam: Present: normal affect, normal mood Skin exam: Present: warm, dry, intact, normal color. Absent: rash Stroke MDM - Lab Data Result diagrams: 10/10/19 11:37 10/10/19 11:37 Lab Results 10/10/19 10/10/19 10/10/19 Range/Units 11:37 11:37 11:37 WBC 10.0 (3.8-10.6) k/uL RBC 4.74 (4.30-5.90) m/uL Hgb 13.4 (13.0-17.5) gm/dL Hct 39.0 (39.0-53.0) % MCV 82.3 (80.0-100.0) fL MCH 28.3 (25.0-35.0) pg MCHC 34.4 (31.0-37.0) g/dL RDW 14.6 (11.5-15.5) % Plt Count 306 (150-450) k/uL Neutrophils % 77 % Lymphocytes % 15 % Monocytes % 5 % Eosinophils % 1 % Basophils % 1 % Neutrophils # 7.7 (1.3-7.7) k/uL Lymphocytes # 1.5 (1.0-4.8) k/uL Monocytes # 0.5 (0-1.0) k/uL Eosinophils # 0.1 (0-0.7) k/uL Basophils # 0.1 (0-0.2) k/uL Poikilocytosis Slight PT 10.4 (9.0-12.0) sec INR 1.0 (<1.2) APTT 23.3 (22.0-30.0) sec Sodium 140 (137-145) mmol/L Potassium 4.2 (3.5-5.1) mmol/L Chloride 102 (98-107) mmol/L Carbon Dioxide 26 (22-30) mmol/L Anion Gap 12 mmol/L BUN 10 (9-20) mg/dL Creatinine 0.85 (0.66-1.25) mg/dL Est GFR (CKD-EPI)AfAm >90 (>60 ml/min/1.73 sqM) Est GFR (CKD-EPI)NonAf >90 (>60 ml/min/1.73 sqM) Glucose 110 H (74-99) mg/dL Calcium 8.7 (8.4-10.2) mg/dL Total Bilirubin 0.7 (0.2-1.3) mg/dL AST 33 (17-59) U/L ALT 30 (4-49) U/L Alkaline Phosphatase 65 (38-126) U/L Troponin I (0.000-0.034) ng/mL Total Protein 7.8 (6.3-8.2) g/dL Albumin 4.1 (3.5-5.0) g/dL 10/10/19 Range/Units 11:37 WBC (3.8-10.6) k/uL RBC (4.30-5.90) m/uL Hgb (13.0-17.5) gm/dL Hct (39.0-53.0) % MCV (80.0-100.0) fL MCH (25.0-35.0) pg MCHC (31.0-37.0) g/dL RDW (11.5-15.5) % Plt Count (150-450) k/uL Neutrophils % % Lymphocytes % % Monocytes % % Eosinophils % % Basophils % % Neutrophils # (1.3-7.7) k/uL Lymphocytes # (1.0-4.8) k/uL Monocytes # (0-1.0) k/uL Eosinophils # (0-0.7) k/uL Basophils # (0-0.2) k/uL Poikilocytosis PT (9.0-12.0) sec INR (<1.2) APTT (22.0-30.0) sec Sodium (137-145) mmol/L Potassium (3.5-5.1) mmol/L Chloride (98-107) mmol/L Carbon Dioxide (22-30) mmol/L Anion Gap mmol/L BUN (9-20) mg/dL Creatinine (0.66-1.25) mg/dL Est GFR (CKD-EPI)AfAm (>60 ml/min/1.73 sqM) Est GFR (CKD-EPI)NonAf (>60 ml/min/1.73 sqM) Glucose (74-99) mg/dL Calcium (8.4-10.2) mg/dL Total Bilirubin (0.2-1.3) mg/dL AST (17-59) U/L ALT (4-49) U/L Alkaline Phosphatase (38-126) U/L Troponin I <0.012 (0.000-0.034) ng/mL Total Protein (6.3-8.2) g/dL Albumin (3.5-5.0) g/dL - Medical Decision Making Upon arrival the patient was promptly placed into room 1. A thorough history and physical exam is performed. Patient did have transient left upper extremity numbness and weakness which has completely resolved. Because of the patient's concerning complaints did recommend an evaluation for possible TIA. The patient did agree to this. Laboratory studies were conducted which demonstrates no acute abnormalities. CT of the patient's brain demonstrates retention cyst or polyp of the left maxillary sinus. No acute intracranial abnormality. I reevaluated the patient. He has not had any return of his perioral numbness or left upper extremity numbness. He denies any shortness of breath at this time. I discussed diagnosis, differential and treatment options. At this time the patient will be discharged home. He is instructed to take aspirin daily. He needs follow-up with his primary care physician for further evaluation to include Holter monitoring, echo and carotid Dopplers. I will provide him with a prescription for an albuterol inhaler as he does believe his at home are . If the patient has any new or worsening symptoms he should return to the emergency department. The patient was in agreement with the treatment plan and he was discharged home in stable condition 10/10/19 11:54 EKG demonstrates normal sinus rhythm with ventricular rate of 78. UT interval 156. QRS 98. QTC of 476. No acute ST segment elevation or depressions concerning for ischemic changes. Past Medical History Past Medical History: Asthma, Hypertension, Memory Impairment Additional Past Medical History / Comment(s): back pain, anxiety attacks, arthritis in back History of Any Multi-Drug Resistant Organisms: None Reported Past Surgical History: No Surgical Hx Reported Past Anesthesia/Blood Transfusion Reactions: No Reported Reaction Past Psychological History: Anxiety, Panic Disorder Smoking Status: Former smoker Past Alcohol Use History: None Reported Past Drug Use History: None Reported Course Vital Signs 10/10/19 10/10/19 10:56 13:09 Temperature 99.0 F 99.0 F Pulse Rate 80 82 Respiratory 16 18 Rate Blood Pressure 139/76 138/84 O2 Sat by Pulse 98 97 Oximetry Disposition Clinical Impression: Paresthesia of left upper extremity Disposition: HOME SELF-CARE Condition: Stable Instructions (If sedation given, give patient instructions): Paresthesia (ED) Additional Instructions: Please follow-up with your primary care doctor in 2-4 days. Take an aspirin daily. I do recommend carotid Dopplers, echo of your heart and possible Holter monitoring. Return to the ED for any new or worsening symptoms Prescriptions: Albuterol Inhaler [Ventolin Hfa Inhaler] 1 - 2 puff INHALATION RT-Q6H PRN #1 inhaler PRN Reason: Shortness Of Breath Is patient prescribed a controlled substance at d/c from ED?: No Referrals: Sachin Childs MD [Primary Care Provider] - 1-2 days Time of Disposition: 12:57
[2019-10-10 11:56] LABS: Partial Thromboplastin Time 23.3 sec (22.0-30.0); Prothrombin Time 10.4 sec (9.0-12.0)
[2019-10-10 11:57] LABS: ALT 30 U/L (4-49); AST 33 U/L (17-59); African American GFR (CKD) >90 (>60 ml/min/1.73 sqM); Albumin 4.1 g/dL (3.5-5.0); Alkaline Phosphatase 65 U/L (38-126); Anion Gap 12 mmol/L; Blood Urea Nitrogen 10 mg/dL (9-20); Calcium 8.7 mg/dL (8.4-10.2); Carbon Dioxide 26 mmol/L (22-30); Chloride 102 mmol/L (98-107); Glucose 110 mg/dL (74-99); Non-African American GFR(CKD) >90 (>60 ml/min/1.73 sqM); Potassium 4.2 mmol/L (3.5-5.1); Sodium 140 mmol/L (137-145); Total Bilirubin 0.7 mg/dL (0.2-1.3); Total Protein 7.8 g/dL (6.3-8.2)
--- NOTE | 2019-10-10 12:07 | XR ---
EXAMINATION TYPE: XR chest 2V DATE OF EXAM: 10/10/2019 HISTORY: altered mental status. REFERENCE: Previous study dated 09/17/2018. FINDINGS: The lungs are clear. Pleural space are clear. The heart is not enlarged. IMPRESSION: NO ACTIVE INTRATHORACIC DISEASE.
--- NOTE | 2019-10-10 12:26 | CT ---
EXAMINATION TYPE: CT brain wo con DATE OF EXAM: 10/10/2019 COMPARISON: NONE HISTORY: Neuro deficit CT DLP: 1145.4 mGycm Automated exposure control for dose reduction was used. FINDINGS: Central structures are midline. There is no evidence of hydrocephalus. No acute focal lesion, mass ef fect or midline shift is seen. I do not see evidence of intracranial blood. There are at least 2 small retention cyst or polyps involving the left maxillary sinus. The largest m easures 1.5 cm. The remainder of the visualized paranasal sinuses and mastoids are clear. The bony ca lvarium is intact. IMPRESSION: 1. NO ACUTE INTRACRANIAL ABNORMALITY. 2. RETENTION CYST OR POLYPS, LEFT MAXILLARY SINUS.
[2019-10-10 13:15] VITALS: BP 138/84; PULSE 82; RESP 18
== END 2019-10-10 13:09 | disposition home or self-care (01) ==
LOC: EC 10:53
DX: R20.2 Paresthesia of skin (principal); R94.02 Abnormal brain scan; R20.0 Anesthesia of skin; R29.898 Other symptoms and signs involving the musculoskeletal system; F41.0 Panic disorder [episodic paroxysmal anxiety]; J45.909 Unspecified asthma, uncomplicated; Z87.891 Personal history of nicotine dependence; Z79.899 Other long term (current) drug therapy
CPT/HCPCS: 36415; 70450; 71046; 80053; 84484; 85025; 85610; 85730; 93005; 99285

== ENCOUNTER 2019-12-06 10:28 | Emergency (ER) | payer OTHER ==
[2019-12-06 10:53] VITALS: TEMP 99.3
[2019-12-06] MEDS ORDERED: PANTOPRAZOLE 40 MG/10 ML VIAL IVP STA (11:28)
[2019-12-06 11:45] LABS: Basophils % (A) 0 %; Eosinophils # (A) 0.2 k/uL (0-0.7); Eosinophils % (A) 2 %; HCT 39.8 % (39.0-53.0); HGB 13.4 gm/dL (13.0-17.5); Lymphocytes # (A) 1.7 k/uL (1.0-4.8); Lymphocytes % (A) 16 %; MCHC 33.7 g/dL (31.0-37.0); Mean Platelet Volume 8.1; Monocytes # (A) 0.4 k/uL (0-1.0); Monocytes % (A) 4 %; Neutrophils # (A) 8.1 k/uL (1.3-7.7); Neutrophils % (A) 77 %; Platelet Count 321 k/uL (150-450); RDW 14.6 % (11.5-15.5); WBC 10.5 k/uL (3.8-10.6)
[2019-12-06 11:59] LABS: ALT 35 U/L (4-49); AST 33 U/L (17-59); African American GFR (CKD) >90 (>60 ml/min/1.73 sqM); Albumin 4.3 g/dL (3.5-5.0); Alkaline Phosphatase 68 U/L (38-126); Amylase 37 U/L (30-110); Anion Gap 9 mmol/L; Blood Urea Nitrogen 14 mg/dL (9-20); Calcium 8.6 mg/dL (8.4-10.2); Carbon Dioxide 28 mmol/L (22-30); Chloride 102 mmol/L (98-107); Glucose 114 mg/dL (74-99); Non-African American GFR(CKD) >90 (>60 ml/min/1.73 sqM); Potassium 4.4 mmol/L (3.5-5.1); Sodium 139 mmol/L (137-145); Total Bilirubin 0.6 mg/dL (0.2-1.3); Total Protein 8.3 g/dL (6.3-8.2)
[2019-12-06 11:59] LABS: Appearance,Urine Cloudy (Clear); Bilirubin,Urine Negative (Negative); Blood,Urine Negative (Negative); Color,Urine Yellow; Glucose,Urine (UA) Negative (Negative); Hyaline Casts,Urine 1 /lpf (0-2); Ketones,Urine Negative (Negative); Leukocyte Esterase,Urine Negative (Negative); Mucus,Urine Rare /hpf; Nitrite,Urine Negative (Negative); Protein,Urine Negative (Negative); RBC,Urine 1 /hpf (0-5); Specific Gravity,Urine 1.013 (1.001-1.035); Squamous Epithelial Cell,Urine 3 /hpf (0-4); Urobilinogen,Urine <2.0 mg/dL (<2.0); WBC,Urine 2 /hpf (0-5)
--- NOTE | 2019-12-06 12:08 | XR ---
EXAMINATION TYPE: XR chest 2V DATE OF EXAM: 12/06/2019 COMPARISON: 10/10/2019 HISTORY: Chest pain TECHNIQUE: Frontal and lateral views of the chest are obtained. FINDINGS: Low lung volumes exaggerate the central pulmonary vasculature unchanged from the prior. Th ere is no focal air space opacity, pleural effusion, or pneumothorax seen. The cardiac silhouette si ze is upper limits of normal size as seen on the prior. Accentuated thoracic kyphosis with stable mil d thoracolumbar spine junction compression deformities. IMPRESSION: No acute cardiopulmonary process.
[2019-12-06] MEDS ORDERED: FAMOTIDINE 20 MG/2 ML VIAL IV STA (12:37)
--- NOTE | 2019-12-06 13:58 | CT ---
EXAMINATION TYPE: CT angio thor/abd pel aorta DATE OF EXAM: 12/06/2019 COMPARISON: 09/25/2018 HISTORY: 39-year-old male Pain in arm/back TECHNIQUE: Contiguous axial scanning of the chest, abdomen, and pelvis performed without and with IV Contrast, patient injected with 100 ml mL of Isovue 370. Coronal/sagittal MIP reconstructions perform ed. 3-D reconstructions generated on a dedicated workstation. CT DLP: 5533.5 mGycm Automated exposure control for dose reduction was used. FINDINGS: CHEST: Heart is enlarged with a small anterior basilar pericardial effusion measuring 1.5 cm. There is prominent motion at the base of the heart. This makes it difficult to accurately assess the caliber of the aortic root. Assessment tears also markedly limited for dissection. However, the remai nder of the thoracic aorta shows no evidence for dissection or aneurysm. Conventional arch vessel bra nching anatomy. No thoracic lymphadenopathy by CT size criteria. Evaluation of the lungs is a 9 mm superior segment left lower lobe pulmonary nodule, axial image 36. 4 mm right midlung pulmonary nodule along the major fissure, axial image 36. Otherwise, no consolidation or pleural effusion. ABDOMEN: Liver enlarged measuring 22.8 cm with low attenuation compatible with fatty infiltration. Portal veno us system is patent. No biliary ductal dilatation. Gallbladder distended up to 5.0 cm wide without surrounding inflammation. Adrenal glands, kidneys, and pancreas appear within normal limits. Spleen enlarged at 16.9 cm with splenules. No dilated small bowel, free fluid, or free air. No evidence for abdominal aortic aneurysm. Normal appendix. No significant stool burden. No pericolonic inflammatory change. Scattered prominent mesenteric lymph nodes are present measuring up to 8 mm. Borderline sized [place] lymph node measures up to 1.4 cm. Mild bilateral flank edema may be secondary to some soft tissue anasarca. PELVIS: Bladder under distended. Left-sided pelvic phleboliths. External iliac chain lymph nodes measure up t o 9 mm, likely reactive/post inflammatory. Borderline sized 1.4 cm left upper femoral chain lymph nod e, axial image 214. No abnormal fluid collection in the pelvis. BONES: No osseous destructive process. Moderate degenerative disc disease lower thoracic spine. Accentuated lumbar lordosis and accentuated lower thoracic stenosis. IMPRESSION: 1. NONDIAGNOSTIC ASSESSMENT OF THE AORTIC ROOT DUE TO CARDIAC MOTION. HOWEVER, THE ASCENDING AORTA AN D REMAINDER OF THE THORACOABDOMINAL AORTA APPEAR NORMAL CALIBER WITHOUT EVIDENCE FOR AORTIC DISSECTIO N. 2. HEPATOSPLENOMEGALY (LIVER 22.8 CM AND SPLEEN 16.9 CM) ALONG WITH MARKED HEPATIC STEATOSIS. 3. A COUPLE PULMONARY NODULES. THE LARGEST ON THE LEFT MEASURES 9 MM AND COULD REPRESENT AN INFECTIOU S/INFLAMMATORY FOCUS. 3 MONTH FOLLOW-UP CT RECOMMENDED TO ENSURE STABILITY/RESOLUTION. 4. 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 5. BORDERLINE SIZED LEFT UPPER FEMORAL CHAIN LYMPH NODES NEAR THE INGUINAL REGION MEASURING UP TO 1.4 CM. FINDINGS PROBABLY REACTIVE/POST INFLAMMATORY AND CAN BE FOLLOWED CLINICALLY.
--- NOTE | 2019-12-06 15:07 | ED ---
General Adult HPI - General Chief complaint: Recheck/Abnormal Lab/Rx Stated complaint: pain in arm/back Time Seen by Provider: 12/06/19 10:59 Source: patient Mode of arrival: wheelchair Limitations: physical limitation - History of Present Illness Initial comments: 39yo male presenting multiple complaints. He states the has low to mid back pain that has been worsening over past week, he also noted to have some left lower abdominal discomfort. Patient denies noting skin changes. Patient states that this morning he woke up with right shoulder pain and "falling asleep" sensation. Denies injury, trauma. States feels better now. Denies pain with ROM. Patient denies jaw pain, history of premature CAD in family. Denies smoking history. Admits to high BP history but no history of DM. Patient denies shortness of breath. Admit to mild congestions. Denies fevers, IVDU. Denies leg swelling. Patient has no other complaints, appears well on arrival - Related Data Home Medications Medication Instructions Recorded Confirmed Albuterol Nebulized [Ventolin 2.5 mg INHALATION RT-Q4H PRN 09/25/18 12/06/19 Nebulized] Albuterol Sulfate [Proair Hfa] 1 - 2 puff INHALATION RT-Q4H PRN 09/25/18 12/06/19 Acetaminophen Tab [Tylenol] 650 mg PO Q4H PRN 12/06/19 12/06/19 diphenhydrAMINE [Benadryl] 25 mg PO Q4H PRN 12/06/19 12/06/19 Allergies Allergy/AdvReac Type Severity Reaction Status Date / Time No Known Allergies Allergy Verified 12/06/19 13:30 Review of Systems ROS Statement: Those systems with pertinent positive or pertinent negative responses have been documented in the HPI. ROS Other: All systems not noted in ROS Statement are negative. Past Medical History Past Medical History: Asthma, Hypertension, Memory Impairment Additional Past Medical History / Comment(s): back pain, anxiety attacks, arthritis in back History of Any Multi-Drug Resistant Organisms: None Reported Past Surgical History: No Surgical Hx Reported Past Anesthesia/Blood Transfusion Reactions: No Reported Reaction Past Psychological History: Anxiety, Panic Disorder Smoking Status: Former smoker Past Alcohol Use History: None Reported Past Drug Use History: None Reported General Exam - General Exam Comments Initial Comments: General: The patient is awake and alert, in no distress, and does not appear acutely ill. Eye: +3 mm pupils are equal, round and reactive to light, extra-ocular moveme nts are intact. No nystagmus. There is normal conjunctiva bilaterally. No signs of icterus. Ears, nose, mouth and throat: There are moist mucous membranes and no oral le sions. Neck: The neck is supple, there is no tenderness or JVD. Cardiovascular: There is a regular rate and rhythm. No murmur, rub or gallop is appreciated. Respiratory: Lungs are clear to auscultation, respirations are non-labored, breath sounds are equal. No wheezes, stridor, rales, or rhonchi. Gastrointestinal: Soft, non-distended, non-tender abdomen without masses or organomegaly noted. There is no rebound or guarding present. Musculoskeletal: Normal ROM, no tenderness. Strength 5/5. Sensation intact. Radial pulses equal bilaterally 2+. Neurological: A&O x 3. CN II-XII intact grossly, There are no obvious motor or sensory deficits. Coordination appears grossly intact. Speech is normal. Skin: Skin is warm and dry and no rashes . Flesh colored cauliflower like lesions on the left lower abdomen. NO LE edema. Psychiatric: Cooperative, appropriate mood & affect, normal judgment. Limitations: physical limitation Course Vital Signs 12/06/19 12/06/19 12/06/19 10:49 10:52 13:52 Temperature 99.3 F Pulse Rate 88 76 80 Respiratory 18 16 16 Rate Blood Pressure 153/83 136/79 132/74 O2 Sat by Pulse 96 100 100 Oximetry 12/06/19 12/06/19 14:52 15:26 Temperature Pulse Rate 83 88 Respiratory 18 16 Rate Blood Pressure 123/76 141/76 O2 Sat by Pulse 99 99 Oximetry Medical Decision Making - Medical Decision Making 39yo presenting for mid back pain, left abdominal pain, right shoulder pain upon waking up (shoulder pain resolved), not reproducible at this time. Did seem more so to correlate with patient sleep on arm. EKG no acute findings. Vascular exam unremarkable. However given history of HTN, areas of pain r/o atypical chest pain/dissection. Suspicion at this time low. CTA has artifact but no obvious abnormalities. Patient 2 troponin (-). Abdominal exam did reveal cauliflower like lesions. Recommended dermatology f/u for biopsy (reactive LN noted in this region just inferior to abdominal lesions). Upon reevaluation patient appears well asymptomatic aside from pain in the skin of LLQ of abdomen. Patient is aware of pulmonary nodule findings. Patient is aware of importance of f/u with PCP to obtain CT results and f/u with incidental findings as well as importance of dermatology f/u. Patient case discussed wtih Dr Alaniz who is agreeable to care plan and discharge. - Lab Data Result diagrams: 12/06/19 11:31 12/06/19 11:31 Lab Results 12/06/19 12/06/19 12/06/19 Range/Units 11:31 11:31 11:31 WBC 10.5 (3.8-10.6) k/uL RBC 4.80 (4.30-5.90) m/uL Hgb 13.4 (13.0-17.5) gm/dL Hct 39.8 (39.0-53.0) % MCV 83.0 (80.0-100.0) fL MCH 28.0 (25.0-35.0) pg MCHC 33.7 (31.0-37.0) g/dL RDW 14.6 (11.5-15.5) % Plt Count 321 (150-450) k/uL Neutrophils % 77 % Lymphocytes % 16 % Monocytes % 4 % Eosinophils % 2 % Basophils % 0 % Neutrophils # 8.1 H (1.3-7.7) k/uL Lymphocytes # 1.7 (1.0-4.8) k/uL Monocytes # 0.4 (0-1.0) k/uL Eosinophils # 0.2 (0-0.7) k/uL Basophils # 0.0 (0-0.2) k/uL Sodium 139 (137-145) mmol/L Potassium 4.4 (3.5-5.1) mmol/L Chloride 102 (98-107) mmol/L Carbon Dioxide 28 (22-30) mmol/L Anion Gap 9 mmol/L BUN 14 (9-20) mg/dL Creatinine 0.83 (0.66-1.25) mg/dL Est GFR (CKD-EPI)AfAm >90 (>60 ml/min/1.73 sqM) Est GFR (CKD-EPI)NonAf >90 (>60 ml/min/1.73 sqM) Glucose 114 H (74-99) mg/dL Calcium 8.6 (8.4-10.2) mg/dL Total Bilirubin 0.6 (0.2-1.3) mg/dL AST 33 (17-59) U/L ALT 35 (4-49) U/L Alkaline Phosphatase 68 (38-126) U/L Troponin I <0.012 (0.000-0.034) ng/mL Total Protein 8.3 H (6.3-8.2) g/dL Albumin 4.3 (3.5-5.0) g/dL Amylase 37 (30-110) U/L Lipase 55 (23-300) U/L Urine Color Urine Appearance (Clear) Urine pH (5.0-8.0) Ur Specific [place] (1.001-1.035) Urine Protein (Negative) Urine Glucose (UA) (Negative) Urine Ketones (Negative) Urine Blood (Negative) Urine Nitrite (Negative) Urine Bilirubin (Negative) Urine Urobilinogen (<2.0) mg/dL Ur Leukocyte Esterase (Negative) Urine RBC (0-5) /hpf Urine WBC (0-5) /hpf Ur Squamous Epith Cells (0-4) /hpf Hyaline Casts (0-2) /lpf Urine Mucus (None) /hpf 12/06/19 12/06/19 Range/Units 11:46 14:30 WBC (3.8-10.6) k/uL RBC (4.30-5.90) m/uL Hgb (13.0-17.5) gm/dL Hct (39.0-53.0) % MCV (80.0-100.0) fL MCH (25.0-35.0) pg MCHC (31.0-37.0) g/dL RDW (11.5-15.5) % Plt Count (150-450) k/uL Neutrophils % % Lymphocytes % % Monocytes % % Eosinophils % % Basophils % % Neutrophils # (1.3-7.7) k/uL Lymphocytes # (1.0-4.8) k/uL Monocytes # (0-1.0) k/uL Eosinophils # (0-0.7) k/uL Basophils # (0-0.2) k/uL Sodium (137-145) mmol/L Potassium (3.5-5.1) mmol/L Chloride (98-107) mmol/L Carbon Dioxide (22-30) mmol/L Anion Gap mmol/L BUN (9-20) mg/dL Creatinine (0.66-1.25) mg/dL Est GFR (CKD-EPI)AfAm (>60 ml/min/1.73 sqM) Est GFR (CKD-EPI)NonAf (>60 ml/min/1.73 sqM) Glucose (74-99) mg/dL Calcium (8.4-10.2) mg/dL Total Bilirubin (0.2-1.3) mg/dL AST (17-59) U/L ALT (4-49) U/L Alkaline Phosphatase (38-126) U/L Troponin I <0.012 (0.000-0.034) ng/mL Total Protein (6.3-8.2) g/dL Albumin (3.5-5.0) g/dL Amylase (30-110) U/L Lipase (23-300) U/L Urine Color Yellow Urine Appearance Cloudy (Clear) Urine pH 7.0 (5.0-8.0) Ur Specific [place] 1.013 (1.001-1.035) Urine Protein Negative (Negative) Urine Glucose (UA) Negative (Negative) Urine Ketones Negative (Negative) Urine Blood Negative (Negative) Urine Nitrite Negative (Negative) Urine Bilirubin Negative (Negative) Urine Urobilinogen <2.0 (<2.0) mg/dL Ur Leukocyte Esterase Negative (Negative) Urine RBC 1 (0-5) /hpf Urine WBC 2 (0-5) /hpf Ur Squamous Epith Cells 3 (0-4) /hpf Hyaline Casts 1 (0-2) /lpf Urine Mucus Rare H (None) /hpf Disposition Clinical Impression: Skin lesions, Shoulder pain, Back pain, Abdominal pain, Pulmonary nodule Disposition: HOME SELF-CARE Condition: Good Instructions (If sedation given, give patient instructions): Abdominal Pain (ED), Shoulder Pain (ED) Additional Instructions: Please use medication as discussed. Please follow-up with family doctor in the next 2 days. Please return to emergency room if the symptoms increase or worsen or for any other concerns. Is patient prescribed a controlled substance at d/c from ED?: No Referrals: Esvin Harvey Jr, DO [Primary Care Provider] - 1-2 days Tiffany Velasquez MD [STAFF PHYSICIAN] - 1-2 days Time of Disposition: 15:05
[2019-12-06 15:28] VITALS: BP 141/76; PULSE 88; RESP 16
== END 2019-12-06 15:26 | disposition home or self-care (01) ==
LOC: EC 10:28
DX: L98.9 Disorder of the skin and subcutaneous tissue, unspecified (principal); M25.511 Pain in right shoulder; M54.9 Dorsalgia, unspecified; R91.1 Solitary pulmonary nodule; R09.89 Other specified symptoms and signs involving the circulatory and respiratory systems; Z87.891 Personal history of nicotine dependence; Z79.899 Other long term (current) drug therapy; Z53.8 Procedure and treatment not carried out for other reasons
CPT/HCPCS: 36415; 93005; 80053; 82150; 83690; 84484; 85025; 81001; 71046; 71275; 74174; 99284; 96374; Q9967

== ENCOUNTER 2020-03-29 09:45 | Emergency (ER) | payer OTHER ==
[2020-03-29 09:50] VITALS: RESP 18
[2020-03-29] MEDS ORDERED: MECLIZINE 12.5 MG TAB PO STA (10:20)
[2020-03-29] MEDS ORDERED: SODIUM CHLORIDE 0.9% 500 ML 500 ML IV STA (10:20)
--- NOTE | 2020-03-29 10:33 | ED ---
General Adult HPI - General Chief complaint: Dizziness Stated complaint: Dizziness Time Seen by Provider: 03/29/20 10:08 Source: patient, RN notes reviewed, old records reviewed Mode of arrival: ambulatory Limitations: no limitations - History of Present Illness Initial comments: 39-year-old male patient passed no history of asthma hypertension and morbid obesity presents to ED with chief complaint of dizziness. Patient reports that he woke up this morning and was very dizzy. Worsen when he ambulatory walks he feels as if the room is spinning around him. He states the symptoms began this morning when he woke up. He is denying any headache. He reports that for the last week or so he has been experiencing some otalgia and sinus congestion and drainage. He denies any chest pain or shortness of breath. Denies any visual changes. Systemic: Pt denies fatigue, fever/chills, rash. Pt denies weakness, night sweats, weight loss. Neuro: Pt denies headache, visual disturbances, syncope or pre-syncope. HEENT: Pt denies ocular discharge or irritation, otalgia, rhinorrhea, pharyngitis or notable lymphadenopathy. Cardiopulmonary: Pt denies chest pain, SOB, heart palpitations, dyspnea on exertion. Abdominal/GI: Pt denies abdominal pain, n/v/d. : Pt denies dysuria, burning w/ urination, frequency/urgency. Denies new onset urinary or bowel incontinence. MSK: Pt denies myalgia, loss of strength or function in extremities. Neuro: Pt denies new onset weakness, paresthesias. - Related Data Home Medications Medication Instructions Recorded Confirmed diphenhydrAMINE [Benadryl] 25 mg PO Q4H PRN 12/06/19 03/29/20 Loratadine [Claritin] 10 mg PO DAILY 03/29/20 03/29/20 Oxymetazoline 0.05% Nasl [place] 2 - 3 spray EA NOSTRIL BID PRN MDD 03/29/20 03/29/20 [Afrin 0.05% Nasal [place]] 2 doses Previous Rx's Medication Instructions Recorded Fluticasone Propionate [Flonase 1 - 2 spray EA NOSTRIL DAILY 5 03/29/20 Allergy Relief] Days #1 bottle Meclizine [Antivert] 25 mg PO Q8HR PRN #20 tab 03/29/20 Pseudoephedrine [Sudafed] 30 mg PO Q6H PRN #20 tablet 03/29/20 Allergies Allergy/AdvReac Type Severity Reaction Status Date / Time No Known Allergies Allergy Verified 03/29/20 10:36 Review of Systems ROS Statement: Those systems with pertinent positive or pertinent negative responses have been documented in the HPI. ROS Other: All systems not noted in ROS Statement are negative. Past Medical History Past Medical History: Asthma, Hypertension, Memory Impairment Additional Past Medical History / Comment(s): back pain, anxiety attacks, arthritis in back History of Any Multi-Drug Resistant Organisms: None Reported Past Surgical History: No Surgical Hx Reported Past Anesthesia/Blood Transfusion Reactions: No Reported Reaction Past Psychological History: Anxiety, Panic Disorder Smoking Status: Never smoker Past Alcohol Use History: None Reported Past Drug Use History: None Reported General Exam - General Exam Comments Initial Comments: Constitutional: NAD, AOX3, Pt has pleasant affect. HEENT: NC/AT, trachea midline, neck supple, no lymphadenopathy. Posterior pharynx non erythematous, without exudates. External ears appear normal, without discharge. Small effusion noted on left tympanic membrane. No erythema or signs of infection. Right TM pale arauz without any effusion. No otorrhea or perforation noted. Mucous membranes moist. Eyes PERRLA, EOM intact. There is no scleral icterus. No pallor noted. Cardiopulmonary: RRR, no murmurs, rubs or gallops, no JVD noted. Lungs CTAB in anterior and posterior ely. No peripheral edema. Abdominal exam: Abdomen soft and non-distended. Abdomen non-tender to palpation in all 4 quadrants. Bowel sounds active in LLQ. No hepatosplenomegaly. No ecchymosis Neuro: CN II-XII intact. No nuchal rigidity. No raccon eyes, no marcus sign, no hemotympanum. No cervical spinal tenderness. NIH 0. MSK: No posterior calf tenderness bilaterally, homans sign negative bilaterally. Posterior tibialis and radial pulse +2 bilaterally. Sensation intact in upper and lower extremities. Full active ROM in upper and lower extremities, 5/5 stregnth. Limitations: no limitations Course Vital Signs 03/29/20 03/29/20 09:47 12:34 Temperature 98.5 F 98.3 F Pulse Rate 111 H 92 Respiratory 18 18 Rate Blood Pressure 155/86 140/84 O2 Sat by Pulse 95 97 Oximetry Medical Decision Making - Medical Decision Making 39-year-old male patient with the chief complaint of dizziness feels as if the room is spinning about him. Began this morning. Physical exam displayed left tympanic membrane effusion without any signs of infection. Laboratory investiga tions are obtained didn't display mild hyperglycemia otherwise unremarkable. EKG is nonischemic. CT brain without contrast did not display any acute process. Patient's symptoms resolved entirely after being administered Antivert. He is ambulatory without any difficulty. Patient does report that he had been using Afrin for about 1 week. We the patient is experiencing some rebound congestion. I recommended patient discontinued the Afrin. Patient will be prescribed 5 days of Flonase and pseudoephedrine to use as needed. Patient also be prescribed Antivert for vertigo. Will follow up with primary care provider tomorrow and return to ER if condition worsens. Case discussed with Dr. Ahuja. - Lab Data Result diagrams: 03/29/20 11:02 03/29/20 11:02 Lab Results 03/29/20 03/29/20 03/29/20 Range/Units 11:02 11:02 11:02 WBC 9.6 (3.8-10.6) k/uL RBC 4.92 (4.30-5.90) m/uL Hgb 13.7 (13.0-17.5) gm/dL Hct 41.3 (39.0-53.0) % MCV 84.0 (80.0-100.0) fL MCH 27.9 (25.0-35.0) pg MCHC 33.2 (31.0-37.0) g/dL RDW 15.8 H (11.5-15.5) % Plt Count 292 (150-450) k/uL Neutrophils % 79 % Lymphocytes % 15 % Monocytes % 5 % Eosinophils % 1 % Basophils % 0 % Neutrophils # 7.6 (1.3-7.7) k/uL Lymphocytes # 1.4 (1.0-4.8) k/uL Monocytes # 0.4 (0-1.0) k/uL Eosinophils # 0.1 (0-0.7) k/uL Basophils # 0.0 (0-0.2) k/uL Sodium 139 (137-145) mmol/L Potassium 4.3 (3.5-5.1) mmol/L Chloride 104 (98-107) mmol/L Carbon Dioxide 26 (22-30) mmol/L Anion Gap 9 mmol/L BUN 11 (9-20) mg/dL Creatinine 0.84 (0.66-1.25) mg/dL Est GFR (CKD-EPI)AfAm >90 (>60 ml/min/1.73 sqM) Est GFR (CKD-EPI)NonAf >90 (>60 ml/min/1.73 sqM) Glucose 131 H (74-99) mg/dL Calcium 8.8 (8.4-10.2) mg/dL Phosphorus 3.8 (2.5-4.5) mg/dL Magnesium 2.0 (1.6-2.3) mg/dL Total Bilirubin 0.7 (0.2-1.3) mg/dL AST 31 (17-59) U/L ALT 32 (4-49) U/L Alkaline Phosphatase 84 (38-126) U/L Troponin I <0.012 (0.000-0.034) ng/mL Total Protein 8.3 H (6.3-8.2) g/dL Albumin 4.5 (3.5-5.0) g/dL Urine Color Urine Appearance (Clear) Urine pH (5.0-8.0) Ur Specific [place] (1.001-1.035) Urine Protein (Negative) Urine Glucose (UA) (Negative) Urine Ketones (Negative) Urine Blood (Negative) Urine Nitrite (Negative) Urine Bilirubin (Negative) Urine Urobilinogen (<2.0) mg/dL Ur Leukocyte Esterase (Negative) 03/29/20 Range/Units 11:30 WBC (3.8-10.6) k/uL RBC (4.30-5.90) m/uL Hgb (13.0-17.5) gm/dL Hct (39.0-53.0) % MCV (80.0-100.0) fL MCH (25.0-35.0) pg MCHC (31.0-37.0) g/dL RDW (11.5-15.5) % Plt Count (150-450) k/uL Neutrophils % % Lymphocytes % % Monocytes % % Eosinophils % % Basophils % % Neutrophils # (1.3-7.7) k/uL Lymphocytes # (1.0-4.8) k/uL Monocytes # (0-1.0) k/uL Eosinophils # (0-0.7) k/uL Basophils # (0-0.2) k/uL Sodium (137-145) mmol/L Potassium (3.5-5.1) mmol/L Chloride (98-107) mmol/L Carbon Dioxide (22-30) mmol/L Anion Gap mmol/L BUN (9-20) mg/dL Creatinine (0.66-1.25) mg/dL Est GFR (CKD-EPI)AfAm (>60 ml/min/1.73 sqM) Est GFR (CKD-EPI)NonAf (>60 ml/min/1.73 sqM) Glucose (74-99) mg/dL Calcium (8.4-10.2) mg/dL Phosphorus (2.5-4.5) mg/dL Magnesium (1.6-2.3) mg/dL Total Bilirubin (0.2-1.3) mg/dL AST (17-59) U/L ALT (4-49) U/L Alkaline Phosphatase (38-126) U/L Troponin I (0.000-0.034) ng/mL Total Protein (6.3-8.2) g/dL Albumin (3.5-5.0) g/dL Urine Color Yellow Urine Appearance Clear (Clear) Urine pH 6.5 (5.0-8.0) Ur Specific [place] 1.020 (1.001-1.035) Urine Protein Trace H (Negative) Urine Glucose (UA) Negative (Negative) Urine Ketones Negative (Negative) Urine Blood Negative (Negative) Urine Nitrite Negative (Negative) Urine Bilirubin Negative (Negative) Urine Urobilinogen <2.0 (<2.0) mg/dL Ur Leukocyte Esterase Negative (Negative) - EKG Data -: EKG Interpreted by Me (and Dr. Ahuja ) EKG Comments: Ventricular rate 98, painful and 58, QRS 92, QT/QTC 386 is 492. No sense rhythm, left axis deviation, prolonged QT. No concern for acute ischemia at this time. Disposition Clinical Impression: Vertigo, Middle ear effusion Disposition: HOME SELF-CARE Condition: Stable Instructions (If sedation given, give patient instructions): Dizziness (ED) Additional Instructions: Follow-up with primary care provider tomorrow. Have blood sugar rechecked. Take medications as directed. Use Antivert only as needed if the dizziness returns. Return to ER if condition worsens in any way. Prescriptions: Meclizine [Antivert] 25 mg PO Q8HR PRN #20 tab PRN Reason: Dizziness Fluticasone Propionate [Flonase Allergy Relief] 1 - 2 spray EA NOSTRIL DAILY 5 Days #1 bottle Pseudoephedrine [Sudafed] 30 mg PO Q6H PRN #20 tablet PRN Reason: congestion Is patient prescribed a controlled substance at d/c from ED?: No Referrals: Esvin Harvey Jr, [Primary Care Provider] - 1-2 days
[2020-03-29 11:19] LABS: ALT 32 U/L (4-49); AST 31 U/L (17-59); African American GFR (CKD) >90 (>60 ml/min/1.73 sqM); Albumin 4.5 g/dL (3.5-5.0); Alkaline Phosphatase 84 U/L (38-126); Anion Gap 9 mmol/L; Basophils % (A) 0 %; Blood Urea Nitrogen 11 mg/dL (9-20); Calcium 8.8 mg/dL (8.4-10.2); Carbon Dioxide 26 mmol/L (22-30); Chloride 104 mmol/L (98-107); Eosinophils # (A) 0.1 k/uL (0-0.7); Eosinophils % (A) 1 %; Glucose 131 mg/dL (74-99); HCT 41.3 % (39.0-53.0); HGB 13.7 gm/dL (13.0-17.5); Lymphocytes # (A) 1.4 k/uL (1.0-4.8); Lymphocytes % (A) 15 %; MCH 27.9 pg (25.0-35.0); MCHC 33.2 g/dL (31.0-37.0); Mean Platelet Volume 7.4; Monocytes # (A) 0.4 k/uL (0-1.0); Monocytes % (A) 5 %; Neutrophils # (A) 7.6 k/uL (1.3-7.7); Neutrophils % (A) 79 %; Non-African American GFR(CKD) >90 (>60 ml/min/1.73 sqM); Phosphorus 3.8 mg/dL (2.5-4.5); Platelet Count 292 k/uL (150-450); Potassium 4.3 mmol/L (3.5-5.1); RBC 4.92 m/uL (4.30-5.90); RDW 15.8 % (11.5-15.5); Sodium 139 mmol/L (137-145); Total Bilirubin 0.7 mg/dL (0.2-1.3); Total Protein 8.3 g/dL (6.3-8.2); WBC 9.6 k/uL (3.8-10.6)
--- NOTE | 2020-03-29 11:22 | CT ---
EXAMINATION TYPE: CT brain wo con DATE OF EXAM: 03/29/2020 COMPARISON: 10/10/2019 INDICATION: dizziness DLP: 1099.4 mGycm, Automated exposure control for dose reduction was used. CONTRAST: None CT of the brain is performed utilizing 3 mm thick sections through the posterior fossa and 3 mm thick sections through the remaining calvarium. Study is performed within 24 hours of arrival to the hosp [facility]. No abnormal hyperdensity is present to suggest an acute intracranial hemorrhage. No mass lesion is evident. No acute infarcts are evident. Ventricles and sulci are appropriate for the patient age. There is a small retention cyst or polyp within the left maxillary sinus. Paranasal sinuses and masto id air cells within the [id number] are otherwise clear. IMPRESSIONS: 1. No acute intracranial process.
[2020-03-29 11:54] LABS: Appearance,Urine Clear (Clear); Bilirubin,Urine Negative (Negative); Blood,Urine Negative (Negative); Color,Urine Yellow; Glucose,Urine (UA) Negative (Negative); Ketones,Urine Negative (Negative); Leukocyte Esterase,Urine Negative (Negative); Nitrite,Urine Negative (Negative); PH, Urine 6.5 (5.0-8.0); Protein,Urine Trace (Negative); Urobilinogen,Urine <2.0 mg/dL (<2.0)
[2020-03-29 12:34] VITALS: BP 140/84; PULSE 92; TEMP 98.3
== END 2020-03-29 13:11 | disposition home or self-care (01) ==
LOC: EC 09:45
DX: H74.8X2 Other specified disorders of left middle ear and mastoid (principal)
CPT/HCPCS: 36415; 70450; 80053; 81003; 83735; 84100; 84484; 85025; 93005; 96360; 96361; 99285

== ENCOUNTER 2020-05-12 07:53 | Emergency (ER) | payer OTHER ==
[2020-05-12] MEDS ORDERED: SODIUM CHLORIDE 0.9% 500 ML 500 ML IV STA (08:22)
[2020-05-12 08:50] LABS: Basophils % (A) 0 %; Eosinophils # (A) 0.1 k/uL (0-0.7); Eosinophils % (A) 1 %; HCT 40.1 % (39.0-53.0); HGB 13.4 gm/dL (13.0-17.5); Lymphocytes # (A) 1.5 k/uL (1.0-4.8); Lymphocytes % (A) 15 %; MCH 27.7 pg (25.0-35.0); MCHC 33.3 g/dL (31.0-37.0); MCV 83.3 fL (80.0-100.0); Mean Platelet Volume 7.9; Monocytes # (A) 0.5 k/uL (0-1.0); Monocytes % (A) 5 %; Neutrophils % (A) 79 %; Platelet Count 309 k/uL (150-450); RBC 4.81 m/uL (4.30-5.90); RDW 15.5 % (11.5-15.5); WBC 10.1 k/uL (3.8-10.6)
--- NOTE | 2020-05-12 08:56 | ED ---
General Adult HPI - General Chief complaint: Abdominal Pain Stated complaint: lt sided abd pain Time Seen by Provider: 05/12/20 08:09 Source: patient, RN notes reviewed, old records reviewed Mode of arrival: ambulatory Limitations: no limitations - History of Present Illness Initial comments: 39-year-old male patient presents here for evaluation of left flank pain for the last 2 weeks. Patient reports that the pain is sharp and uncomfortable. Denies any changes in urination. Denies any concern for STI. Reports nausea without emesis. Denies any other acute complaints. Systemic: Pt denies fatigue, fever/chills, rash. Pt denies weakness, night sweats, weight loss. Neuro: Pt denies headache, visual disturbances, syncope or pre-syncope. HEENT: Pt denies ocular discharge or irritation, otalgia, rhinorrhea, pharyngitis or notable lymphadenopathy. Cardiopulmonary: Pt denies chest pain, SOB, heart palpitations, dyspnea on exertion. Abdominal/GI: Pt denies abdominal pain, n/v/d. : Pt denies dysuria, burning w/ urination, frequency/urgency. Denies new onset urinary or bowel incontinence. MSK: Pt denies myalgia, loss of strength or function in extremities. Neuro: Pt denies new onset weakness, paresthesias. - Related Data Home Medications Medication Instructions Recorded Confirmed Fluticasone Propionate [Flonase 2 spray EA NOSTRIL DAILY PRN 05/12/20 05/12/20 Allergy Relief] Previous Rx's Medication Instructions Recorded Pseudoephedrine [Sudafed] 30 mg PO Q6H PRN #20 tablet 03/29/20 Allergies Allergy/AdvReac Type Severity Reaction Status Date / Time No Known Allergies Allergy Verified 05/12/20 08:25 Review of Systems ROS Statement: Those systems with pertinent positive or pertinent negative responses have been documented in the HPI. ROS Other: All systems not noted in ROS Statement are negative. Past Medical History Past Medical History: Asthma, Hypertension, Memory Impairment Additional Past Medical History / Comment(s): back pain, anxiety attacks, arthritis in back History of Any Multi-Drug Resistant Organisms: None Reported Past Surgical History: No Surgical Hx Reported Past Anesthesia/Blood Transfusion Reactions: No Reported Reaction Past Psychological History: Anxiety, Panic Disorder Smoking Status: Never smoker Past Alcohol Use History: None Reported Past Drug Use History: None Reported General Exam - General Exam Comments Initial Comments: Constitutional: NAD, AOX3, Pt has pleasant affect. HEENT: NC/AT, trachea midline, neck supple, no lymphadenopathy. Posterior pharynx non erythematous, without exudates. External ears appear normal, without discharge. Mucous membranes moist. Eyes PERRLA, EOM intact. There is no scleral icterus. No pallor noted. Cardiopulmonary: RRR, no murmurs, rubs or gallops, no JVD noted. Lungs CTAB in anterior and posterior ely. No peripheral edema. Abdominal exam: Abdomen soft and non-distended. Abdomen non-tender to palpation in all 4 quadrants. Bowel sounds active in LLQ. No hepatosplenomegaly. No ecchymosis. Left mildly tender to palpation. No skin changes. Neuro: CN II-XII grossly intact. No nuchal rigidity. No raccon eyes, no marcus sign, no hemotympanum. No cervical spinal tenderness. MSK: No posterior calf tenderness bilaterally, homans sign negative bilaterally. Posterior tibialis and radial pulse +2 bilaterally. Sensation intact in upper and lower extremities. Full active ROM in upper and lower extremities, 5/5 stregnth. Limitations: no limitations Course Vital Signs 05/12/20 07:54 Temperature 98.2 F Pulse Rate 114 H Respiratory 24 Rate Blood Pressure 149/84 O2 Sat by Pulse 99 Oximetry Medical Decision Making - Medical Decision Making 39-year-old male patient presents ED for evaluation of left flank pain. Investigations are non-impressive. CT abdomen and pelvis negative for acute process. Patient will be discharged with follow-up with primary care provider will return to ED with any worsening symptoms. Case discussed with Dr. Pinedo. - Lab Data Result diagrams: 05/12/20 08:39 05/12/20 08:39 Lab Results 05/12/20 05/12/20 05/12/20 Range/Units 08:39 08:39 08:39 WBC 10.1 (3.8-10.6) k/uL RBC 4.81 (4.30-5.90) m/uL Hgb 13.4 (13.0-17.5) gm/dL Hct 40.1 (39.0-53.0) % MCV 83.3 (80.0-100.0) fL MCH 27.7 (25.0-35.0) pg MCHC 33.3 (31.0-37.0) g/dL RDW 15.5 (11.5-15.5) % Plt Count 309 (150-450) k/uL Neutrophils % 79 % Lymphocytes % 15 % Monocytes % 5 % Eosinophils % 1 % Basophils % 0 % Neutrophils # 8.0 H (1.3-7.7) k/uL Lymphocytes # 1.5 (1.0-4.8) k/uL Monocytes # 0.5 (0-1.0) k/uL Eosinophils # 0.1 (0-0.7) k/uL Basophils # 0.0 (0-0.2) k/uL Sodium 140 (137-145) mmol/L Potassium 4.2 (3.5-5.1) mmol/L Chloride 107 (98-107) mmol/L Carbon Dioxide 26 (22-30) mmol/L Anion Gap 7 mmol/L BUN 14 (9-20) mg/dL Creatinine 1.07 (0.66-1.25) mg/dL Est GFR (CKD-EPI)AfAm >90 (>60 ml/min/1.73 sqM) Est GFR (CKD-EPI)NonAf 88 (>60 ml/min/1.73 sqM) Glucose 109 H (74-99) mg/dL Plasma Lactic Acid Ulysses 1.9 (0.7-2.0) mmol/L Calcium 8.7 (8.4-10.2) mg/dL Total Bilirubin 0.6 (0.2-1.3) mg/dL AST 33 (17-59) U/L ALT 27 (4-49) U/L Alkaline Phosphatase 66 (38-126) U/L Total Protein 8.1 (6.3-8.2) g/dL Albumin 4.3 (3.5-5.0) g/dL Lipase 91 (23-300) U/L Urine Color Urine Appearance (Clear) Urine pH (5.0-8.0) Ur Specific [place] (1.001-1.035) Urine Protein (Negative) Urine Glucose (UA) (Negative) Urine Ketones (Negative) Urine Blood (Negative) Urine Nitrite (Negative) Urine Bilirubin (Negative) Urine Urobilinogen (<2.0) mg/dL Ur Leukocyte Esterase (Negative) Urine RBC (0-5) /hpf Urine WBC (0-5) /hpf Ur Squamous Epith Cells (0-4) /hpf Urine Mucus (None) /hpf 05/12/20 Range/Units 09:56 WBC (3.8-10.6) k/uL RBC (4.30-5.90) m/uL Hgb (13.0-17.5) gm/dL Hct (39.0-53.0) % MCV (80.0-100.0) fL MCH (25.0-35.0) pg MCHC (31.0-37.0) g/dL RDW (11.5-15.5) % Plt Count (150-450) k/uL Neutrophils % % Lymphocytes % % Monocytes % % Eosinophils % % Basophils % % Neutrophils # (1.3-7.7) k/uL Lymphocytes # (1.0-4.8) k/uL Monocytes # (0-1.0) k/uL Eosinophils # (0-0.7) k/uL Basophils # (0-0.2) k/uL Sodium (137-145) mmol/L Potassium (3.5-5.1) mmol/L Chloride (98-107) mmol/L Carbon Dioxide (22-30) mmol/L Anion Gap mmol/L BUN (9-20) mg/dL Creatinine (0.66-1.25) mg/dL Est GFR (CKD-EPI)AfAm (>60 ml/min/1.73 sqM) Est GFR (CKD-EPI)NonAf (>60 ml/min/1.73 sqM) Glucose (74-99) mg/dL Plasma Lactic Acid Ulysses (0.7-2.0) mmol/L Calcium (8.4-10.2) mg/dL Total Bilirubin (0.2-1.3) mg/dL AST (17-59) U/L ALT (4-49) U/L Alkaline Phosphatase (38-126) U/L Total Protein (6.3-8.2) g/dL Albumin (3.5-5.0) g/dL Lipase (23-300) U/L Urine Color Light Yellow Urine Appearance Clear (Clear) Urine pH 6.0 (5.0-8.0) Ur Specific [place] 1.033 (1.001-1.035) Urine Protein Negative (Negative) Urine Glucose (UA) Negative (Negative) Urine Ketones Negative (Negative) Urine Blood Negative (Negative) Urine Nitrite Negative (Negative) Urine Bilirubin Negative (Negative) Urine Urobilinogen <2.0 (<2.0) mg/dL Ur Leukocyte Esterase Trace H (Negative) Urine RBC <1 (0-5) /hpf Urine WBC 5 (0-5) /hpf Ur Squamous Epith Cells 4 (0-4) /hpf Urine Mucus Rare H (None) /hpf Disposition Clinical Impression: Flank pain Disposition: HOME SELF-CARE Condition: Stable Instructions (If sedation given, give patient instructions): Flank Pain (ED) Additional Instructions: Follow-up with primary care provider tomorrow. Return to ER if any worsening symptoms. Is patient prescribed a controlled substance at d/c from ED?: No Referrals: Esvin Harvey Jr, DO [Primary Care Provider] - 1-2 days
[2020-05-12 09:00] LABS: ALT 27 U/L (4-49); AST 33 U/L (17-59); African American GFR (CKD) >90 (>60 ml/min/1.73 sqM); Albumin 4.3 g/dL (3.5-5.0); Alkaline Phosphatase 66 U/L (38-126); Anion Gap 7 mmol/L; Blood Urea Nitrogen 14 mg/dL (9-20); Calcium 8.7 mg/dL (8.4-10.2); Carbon Dioxide 26 mmol/L (22-30); Chloride 107 mmol/L (98-107); Glucose 109 mg/dL (74-99); Non-African American GFR(CKD) 88 (>60 ml/min/1.73 sqM); Potassium 4.2 mmol/L (3.5-5.1); Sodium 140 mmol/L (137-145); Total Bilirubin 0.6 mg/dL (0.2-1.3); Total Protein 8.1 g/dL (6.3-8.2)
--- NOTE | 2020-05-12 09:53 | CT ---
EXAMINATION TYPE: CT abdomen pelvis w con DATE OF EXAM: 05/12/2020 COMPARISON: 12/06/2019 HISTORY: Lt abd pain CT DLP: 5510 mGycm CONTRAST: CT scan of the abdomen and pelvis is performed without Oral Contrast and with IV Contrast, patient in jected with 100 mL of Isovue 300. FINDINGS: LUNG BASES-: No visible nodule. No infiltrate. LIVER/GB: No calcified gallstones. No space occupying hepatic lesion. Biliary tree is of normal ca liber. PANCREAS: No inflammation. No distinct mass. SPLEEN: No splenic enlargement. No lesion seen. ADRENALS: No nodule. No thickening. KIDNEYS/BLADDER: No hydronephrosis. No nephrolithiasis. No distinct renal mass. Urinary bladder g rossly unremarkable. BOWEL: Normal appendix. Normal bowel caliber. No inflammation. GENITAL ORGANS: No gross abnormality. LYMPH NODES: No greater than 1cm abdominal or pelvic lymph nodes are appreciated. AORTA: No significant abnormality. OSSEOUS STRUCTURES: No significant abnormality is seen. OTHER: No significant additional abnormality is seen. IMPRESSION: 1. No significant abnormality seen to account for the patient's symptoms.
[2020-05-12 10:20] LABS: Appearance,Urine Clear (Clear); Bilirubin,Urine Negative (Negative); Blood,Urine Negative (Negative); Color,Urine Light Yellow; Glucose,Urine (UA) Negative (Negative); Ketones,Urine Negative (Negative); Leukocyte Esterase,Urine Trace (Negative); Mucus,Urine Rare /hpf; Nitrite,Urine Negative (Negative); Protein,Urine Negative (Negative); RBC,Urine <1 /hpf (0-5); Specific Gravity,Urine 1.033 (1.001-1.035); Squamous Epithelial Cell,Urine 4 /hpf (0-4); Urobilinogen,Urine <2.0 mg/dL (<2.0); WBC,Urine 5 /hpf (0-5)
[2020-05-12 11:07] VITALS: BP 132/95; PULSE 97; RESP 18; TEMP 97.3
== END 2020-05-12 11:07 | disposition home or self-care (01) ==
LOC: EC 07:53
DX: R10.9 Unspecified abdominal pain (principal); R11.0 Nausea; J45.909 Unspecified asthma, uncomplicated
CPT/HCPCS: 36415; 80053; 83605; 83690; 85025; 81001; 74177; 99284; 96360; Q9967

== ENCOUNTER 2021-01-05 16:21 | Emergency (ER) | payer OTHER ==
[2021-01-05 17:34] LABS: Anisocytosis Slight; Basophils % (A) 0 %; Eosinophils # (A) 0.2 k/uL (0-0.7); Eosinophils % (A) 1 %; HCT 39.2 % (39.0-53.0); HGB 12.6 gm/dL (13.0-17.5); Lymphocytes # (A) 2.1 k/uL (1.0-4.8); Lymphocytes % (A) 19 %; MCHC 32.2 g/dL (31.0-37.0); MCV 83.9 fL (80.0-100.0); Mean Platelet Volume 7.5; Monocytes # (A) 0.5 k/uL (0-1.0); Monocytes % (A) 5 %; Neutrophils # (A) 8.2 k/uL (1.3-7.7); Neutrophils % (A) 74 %; Platelet Count 309 k/uL (150-450); RBC 4.67 m/uL (4.30-5.90); RDW 16.4 % (11.5-15.5)
[2021-01-05 17:43] LABS: ALT 36 U/L (4-49); AST 40 U/L (17-59); African American GFR (CKD) >90 (>60 ml/min/1.73 sqM); Albumin 4.2 g/dL (3.5-5.0); Alkaline Phosphatase 63 U/L (38-126); Anion Gap 11 mmol/L; Blood Urea Nitrogen 11 mg/dL (9-20); Calcium 8.6 mg/dL (8.4-10.2); Carbon Dioxide 28 mmol/L (22-30); Chloride 102 mmol/L (98-107); Glucose 145 mg/dL (74-99); Non-African American GFR(CKD) >90 (>60 ml/min/1.73 sqM); Sodium 141 mmol/L (137-145); Total Bilirubin 0.4 mg/dL (0.2-1.3); Total Protein 7.8 g/dL (6.3-8.2)
--- NOTE | 2021-01-05 18:08 | US ---
EXAMINATION TYPE: US venous doppler duplex LE LT DATE OF EXAM: 01/05/2021 5:50 PM COMPARISON: NONE CLINICAL HISTORY: leg swelling. Leg swelling and pain x 1 week. No hx of DVT. Patient does not take b lood thinners. SIDE PERFORMED: Left TECHNIQUE: The lower extremity deep venous system is examined utilizing real time linear array sonog abel with graded compression, doppler sonography and color-flow sonography. VESSELS IMAGED: Common Femoral Vein Deep Femoral Vein Greater Saphenous Vein * Femoral Vein Popliteal Vein Small Saphenous Vein * Proximal Calf Veins (* superficial vessels) Left Leg: Very difficult and diagnostically limited exam due to patient body habitus. Color flow is seen in CFV, prox femoral vein,and popliteal vein. Color defect is seen in mid femoral vein. Unable t o visualize distal femoral vein. Limited visibility in transverse compression views. IMPRESSION: There is evidence for some mild chronic deep vein thrombosis in the femoral vein. Limite d exam.
--- NOTE | 2021-01-05 18:25 | ED ---
Lower Extremity Injury HPI - General Chief Complaint: Extremity Injury, Lower Stated Complaint: leg swelling Time Seen by Provider: 01/05/21 16:58 Source: patient, EMS Mode of arrival: EMS Limitations: no limitations - History of Present Illness Initial Comments: 40-year-old male who is morbidly obese presenting to the ER today for chief complaint of left leg swelling and redness. Patient states is lower leg has been slightly red and warm to touch. He states he also feels that it is increased in size compared to the right. Patient denies any pain he does a chest pain shortness of breath. Deep inspiration history DVT pulmonary So recent surgeries immobilization or cancer. Patient denies a falls injuries or direct trauma. Patient denies any additional complaints upon arrival he appears well and nontoxic in no acute distress. - Related Data Home Medications Medication Instructions Recorded Confirmed Loratadine [Claritin] 10 mg PO DAILY 01/05/21 01/05/21 Previous Rx's Medication Instructions Recorded Apixaban [Eliquis Starter Pack 0 mg PO DIRECTED 30 Days #1 pack 01/05/21 (for VTE)] Cephalexin [Keflex] 500 mg PO Q6HR 7 Days #28 cap 01/05/21 Allergies Allergy/AdvReac Type Severity Reaction Status Date / Time No Known Allergies Allergy Verified 01/05/21 18:05 Review of Systems ROS Statement: Those systems with pertinent positive or pertinent negative responses have been documented in the HPI. ROS Other: All systems not noted in ROS Statement are negative. Past Medical History Past Medical History: Asthma, Hypertension, Memory Impairment Additional Past Medical History / Comment(s): back pain, anxiety attacks, arthritis in back History of Any Multi-Drug Resistant Organisms: None Reported Past Surgical History: No Surgical Hx Reported Past Anesthesia/Blood Transfusion Reactions: No Reported Reaction Past Psychological History: Anxiety, Panic Disorder Smoking Status: Never smoker Past Alcohol Use History: None Reported Past Drug Use History: None Reported General Exam - General Exam Comments Initial Comments: General: The patient is awake and alert, in no distress Eye: +3 mm pupils are equal, round and reactive to light, extra-ocular movements are intact. No nystagmus. There is normal conjunctiva bilaterally. No signs of icterus. Ears, nose, mouth and throat: There are moist mucous membranes and no oral lesions. Neck: The neck is supple, there is no tenderness or JVD. Cardiovascular: There is a regular rate and rhythm. No murmur, rub or gallop is appreciated. Respiratory: Lungs are clear to auscultation, respirations are non-labored, breath sounds are equal. No wheezes, stridor, rales, or rhonchi. Gastrointestinal: Soft, non-distended, non-tender abdomen without masses or organomegaly noted. There is no rebound or guarding present. Musculoskeletal: Some faint ill defined redness left lower leg, involving top of foot. warm to touch. no obvious discrepancy in size in comparison with the right. Normal ROM, no tenderness. Strength 5/5. Sensation intact. Radial and DP pulses equal bilaterally 2+. Neurological: A&O x 3. CN II-XII intact, There are no obvious motor or sensory deficits. Coordination appears grossly intact. Speech is normal. Skin: Skin is warm and dry and no rashes or lesions are noted. Psychiatric: Cooperative, appropriate mood & affect, normal judgment. Limitations: no limitations Course Vital Signs 01/05/21 16:28 Pulse Rate 109 H Respiratory 22 Rate Blood Pressure 151/90 O2 Sat by Pulse 94 L Oximetry Medical Decision Making - Medical Decision Making Mild leukocytosis. No fevers he denies a chills night sweats or fatigue. pt has chronic DVT on US. no obvious acute. limited exam due to habitus. pt evaluated by Dr Bacon who recommends eliquis/abx and outpatient f/u. i discussed risk benefit of blood thinners and appropriate return to ER for bleeding, head i njuries, headaches, rectal bleeding when on eliquis as well as complications from DVT such as PE. denies any chest pain, dyspnea, pain with deep breath. Patient has very large and myself and attending feel this is attributing to VS. Patient appears stable nontoxic and exam is also consistent with a cellulitis. pt will be placed on keflex. pt is agreeable tot his care plan. aware of importance of f/u for DVT on Friday and return for signs of PE (which were discussed or worsening infection/DVT, signs of bleed complications. pt discharged appearing well. - Lab Data Result diagrams: 01/05/21 17:19 01/05/21 17:19 Lab Results 01/05/21 01/05/21 Range/Units 17:19 17:19 WBC 11.0 H (3.8-10.6) k/uL RBC 4.67 (4.30-5.90) m/uL Hgb 12.6 L (13.0-17.5) gm/dL Hct 39.2 (39.0-53.0) % MCV 83.9 (80.0-100.0) fL MCH 27.0 (25.0-35.0) pg MCHC 32.2 (31.0-37.0) g/dL RDW 16.4 H (11.5-15.5) % Plt Count 309 (150-450) k/uL MPV 7.5 Neutrophils % 74 % Lymphocytes % 19 % Monocytes % 5 % Eosinophils % 1 % Basophils % 0 % Neutrophils # 8.2 H (1.3-7.7) k/uL Lymphocytes # 2.1 (1.0-4.8) k/uL Monocytes # 0.5 (0-1.0) k/uL Eosinophils # 0.2 (0-0.7) k/uL Basophils # 0.0 (0-0.2) k/uL Anisocytosis Slight Sodium 141 (137-145) mmol/L Potassium 4.0 (3.5-5.1) mmol/L Chloride 102 (98-107) mmol/L Carbon Dioxide 28 (22-30) mmol/L Anion Gap 11 mmol/L BUN 11 (9-20) mg/dL Creatinine 0.92 (0.66-1.25) mg/dL Est GFR (CKD-EPI)AfAm >90 (>60 ml/min/1.73 sqM) Est GFR (CKD-EPI)NonAf >90 (>60 ml/min/1.73 sqM) Glucose 145 H (74-99) mg/dL Calcium 8.6 (8.4-10.2) mg/dL Total Bilirubin 0.4 (0.2-1.3) mg/dL AST 40 (17-59) U/L ALT 36 (4-49) U/L Alkaline Phosphatase 63 (38-126) U/L Total Protein 7.8 (6.3-8.2) g/dL Albumin 4.2 (3.5-5.0) g/dL Disposition Clinical Impression: Leg swelling, Cellulitis of left leg Disposition: HOME SELF-CARE Condition: Good Instructions (If sedation given, give patient instructions): Cellulitis (ED), Deep Vein Thrombosis (ED) Additional Instructions: Please use medication as discussed. Please follow-up with family doctor in the next 2 days, recommend repeat US in 1 week. Please return to emergency room if the symptoms increase or worsen or for any other concerns. Prescriptions: Apixaban [Eliquis Starter Pack (for VTE)] 0 mg PO DIRECTED 30 Days #1 pack Cephalexin [Keflex] 500 mg PO Q6HR 7 Days #28 cap Is patient prescribed a controlled substance at d/c from ED?: No Referrals: Esvin Harvey Jr, [Primary Care Provider] - 1-2 days Time of Disposition: 18:25
[2021-01-05] MEDS ORDERED: CEPHALEXIN 500MG STARTER PACK 4 CAP BTL PO STA (18:32)
[2021-01-05] MEDS ORDERED: APIXABAN 5 MG TAB PO STA (18:32)
[2021-01-05 18:49] VITALS: BP 147/98; PULSE 97; RESP 18
== END 2021-01-05 19:17 | disposition home or self-care (01) ==
LOC: EC 16:21
DX: L03.116 Cellulitis of left lower limb (principal); J45.909 Unspecified asthma, uncomplicated; I10 Essential (primary) hypertension; F41.9 Anxiety disorder, unspecified; E66.01 Morbid (severe) obesity due to excess calories; Z68.45 Body mass index [BMI] 70 or greater, adult
CPT/HCPCS: 36415; 80053; 85025; 99284

== ENCOUNTER 2022-07-07 07:57 | Emergency (ER) | payer OTHER ==
[2022-07-07 08:09] VITALS: TEMP 98.8
--- NOTE | 2022-07-07 08:26 | ED ---
SOB HPI - General Chief Complaint: Shortness of Breath Stated Complaint: LORNA Time Seen by Provider: 07/07/22 07:58 Source: patient, RN notes reviewed Mode of arrival: ambulatory Limitations: no limitations - History of Present Illness Initial Comments: Patient is a 41 year old male with a past medical history significant for asthma, hypertension and memory impairment. He presents to the ER with a chief complaint of shortness of breath. He reports this began last night when he woke up coughing. He states is cough is productive with a thick cloudy mucus. He has been congested for the past couple of days and has taken Sudafed with no relief. He denies home O2 use or CPAP use. Denies fevers, chills, nightsweats, headaches, recent sick contacts, abdominal pain, changes in bowel habits or peripheral edema. - Related Data Home Medications Medication Instructions Recorded Confirmed Loratadine [Claritin] 10 mg PO DAILY 01/05/21 01/05/21 Previous Rx's Medication Instructions Recorded Apixaban [Eliquis Starter Pack 0 mg PO DIRECTED 30 Days #1 pack 01/05/21 (for VTE)] Cephalexin [Keflex] 500 mg PO Q6HR 7 Days #28 cap 01/05/21 Albuterol Nebulized [Ventolin 2.5 mg INHALATION Q4H PRN #75 ml 07/07/22 Nebulized] Azithromycin [Zithromax Z Pack] 0 tab PO DIRECTED #6 tab 07/07/22 predniSONE 50 mg PO DAILY #5 tab 07/07/22 Allergies Allergy/AdvReac Type Severity Reaction Status Date / Time No Known Allergies Allergy Verified 07/07/22 08:09 Review of Systems ROS Statement: Those systems with pertinent positive or pertinent negative responses have been documented in the HPI. ROS Other: All systems not noted in ROS Statement are negative. Past Medical History Past Medical History: Asthma, Hypertension, Memory Impairment Additional Past Medical History / Comment(s): back pain, anxiety attacks, arthritis in back History of Any Multi-Drug Resistant Organisms: None Reported Past Surgical History: No Surgical Hx Reported Past Anesthesia/Blood Transfusion Reactions: No Reported Reaction Past Psychological History: Anxiety, Panic Disorder Smoking Status: Never smoker Past Alcohol Use History: None Reported Past Drug Use History: None Reported General Exam Limitations: no limitations General appearance: alert, in no apparent distress Head exam: Present: atraumatic, normocephalic, normal inspection Eye exam: Present: normal appearance, PERRL, EOMI. Absent: scleral icterus, conjunctival injection, periorbital swelling ENT exam: Present: normal exam, mucous membranes moist Neck exam: Present: normal inspection. Absent: tenderness, meningismus, lymphadenopathy Respiratory exam: Present: wheezes, other (cough). Absent: normal lung sounds bilaterally, respiratory distress, rales, rhonchi, stridor Cardiovascular Exam: Present: tachycardia GI/Abdominal exam: Present: soft, normal bowel sounds. Absent: distended, tenderness, guarding, rebound, rigid Extremities exam: Present: normal inspection, full ROM, normal capillary refill. Absent: tenderness, pedal edema, joint swelling, calf tenderness Neurological exam: Present: alert, oriented X3, CN II-XII intact Psychiatric exam: Present: normal affect, normal mood Skin exam: Present: warm, dry, intact, normal color. Absent: rash Course Vital Signs 07/07/22 07/07/22 07/07/22 08:04 08:10 08:41 Temperature 98.8 F Pulse Rate 103 H 107 H Respiratory 19 20 18 Rate Blood Pressure 135/89 O2 Sat by Pulse 95 Oximetry 07/07/22 08:54 Temperature Pulse Rate 93 Respiratory 18 Rate Blood Pressure O2 Sat by Pulse Oximetry Medical Decision Making - Medical Decision Making 41-year-old presented for cough and cold like symptoms. Patient is they have COVID-19, negative influenza x-ray does not show any acute pneumonia. Patient is improved after DuoNeb treatment. Patient to for asthmatic bronchitis was initially given Solu-Medrol be discharged on prednisone 50 mg, azithromycin continuation of updrafts at home return parameters were discussed. - Lab Data Lab Results 07/07/22 07/07/22 Range/Units 08:26 08:26 Coronavirus (PCR) Not Detected (Not Detectd) Influenza Type A RNA Not Detected (Not Detectd) Influenza Type B (PCR) Not Detected (Not Detectd) Disposition Clinical Impression: Asthmatic bronchitis Disposition: HOME SELF-CARE Condition: Stable Instructions (If sedation given, give patient instructions): Acute Bronchitis (ED), Asthma (ED) Additional Instructions: Please return to the Emergency Department if symptoms worsen or any other concerns. Prescriptions: predniSONE 50 mg PO DAILY #5 tab Albuterol Nebulized [Ventolin Nebulized] 2.5 mg INHALATION Q4H PRN #75 ml PRN Reason: difficulty in breathing Azithromycin [Zithromax Z Pack] 0 tab PO DIRECTED #6 tab Is patient prescribed a controlled substance at d/c from ED?: No Referrals: None,Stated [Primary Care Provider] - 1-2 days Time of Disposition: 09:56
[2022-07-07] MEDS ORDERED: IPRATROPIUM-ALBUTEROL 3 ML NEB INHALATION STA (08:30)
--- NOTE | 2022-07-07 08:48 | XR ---
EXAMINATION TYPE: XR chest 2V DATE OF EXAM: 07/07/2022 8:38 AM COMPARISON: Chest radiographs from 12/06/2019 TECHNIQUE: XR chest 2V Frontal and lateral views of the chest. CLINICAL INDICATION:Male, 41 years old with history of cough; FINDINGS: Lungs/Pleura: There is no evidence of pleural effusion, focal consolidation, or pneumothorax. Pulmonary vascularity: Unremarkable. Heart/mediastinum: Cardiomediastinal silhouette is unremarkable. Musculoskeletal: No acute osseous pathology. IMPRESSION: No acute cardiopulmonary disease/process.
[2022-07-07] MEDS ORDERED: methylPREDNISolone SOD SUCCI 125 MG/2 ML VIAL IM ONE (09:54)
[2022-07-07 10:05] VITALS: BP 142/78; PULSE 70; RESP 20
== END 2022-07-07 10:05 | disposition home or self-care (01) ==
LOC: EC 07:57
DX: J45.909 Unspecified asthma, uncomplicated (principal); I10 Essential (primary) hypertension; F41.9 Anxiety disorder, unspecified; Z79.51 Long term (current) use of inhaled steroids; Z79.899 Other long term (current) drug therapy
CPT/HCPCS: 71046; 87502; 87635; 94640; 99285

== ENCOUNTER 2023-01-01 09:16 | Emergency (ER) | payer OTHER ==
--- NOTE | 2023-01-01 10:20 | ED ---
Extremity Problem HPI - General Chief complaint: Extremity Problem,Nontraumatic Stated complaint: hip back pain Time Seen by Provider: 01/01/23 09:37 Source: patient, RN notes reviewed Mode of arrival: ambulatory Limitations: no limitations - History of Present Illness Initial comments: 42-year-old male presents emergency Department with a left hip left knee pain. Patient states that started hurting a few days ago but states that today was worse. Does have history DVT in his left leg. Denies any redness fevers chills no chest pain or shortness breath he does have chronic back issues she states pain radiates down his leg. Denies any blood thinners. Patient states he cannot lift his foot to get in the shower today which made him present to the emergency Department. - Related Data Home Medications Medication Instructions Recorded Confirmed Loratadine [Claritin] 10 mg PO DAILY 01/05/21 01/05/21 Previous Rx's Medication Instructions Recorded Apixaban [Eliquis Starter Pack 0 mg PO DIRECTED 30 Days #1 pack 01/05/21 (for VTE)] Cephalexin [Keflex] 500 mg PO Q6HR 7 Days #28 cap 01/05/21 Albuterol Nebulized [Ventolin 2.5 mg INHALATION Q4H PRN #75 ml 07/07/22 Nebulized] Azithromycin [Zithromax Z Pack] 0 tab PO DIRECTED #6 tab 07/07/22 Omeprazole [PriLOSEC] 40 mg PO DAILY #14 cap 07/07/22 predniSONE 50 mg PO DAILY #5 tab 07/07/22 Ibuprofen [Motrin] 600 mg PO Q8HR PRN #20 tab 01/01/23 predniSONE 50 mg PO DAILY #5 tab 01/01/23 Allergies Allergy/AdvReac Type Severity Reaction Status Date / Time No Known Allergies Allergy Verified 01/01/23 09:29 Review of Systems ROS Statement: Those systems with pertinent positive or pertinent negative responses have been documented in the HPI. ROS Other: All systems not noted in ROS Statement are negative. Past Medical History Past Medical History: Asthma, Hypertension, Memory Impairment Additional Past Medical History / Comment(s): back pain, anxiety attacks, arthritis in back History of Any Multi-Drug Resistant Organisms: None Reported Past Surgical History: No Surgical Hx Reported Past Anesthesia/Blood Transfusion Reactions: No Reported Reaction Past Psychological History: Anxiety, Panic Disorder Smoking Status: Never smoker Past Alcohol Use History: None Reported Past Drug Use History: None Reported General Exam Limitations: no limitations General appearance: alert, in no apparent distress, obese Head exam: Present: atraumatic, normocephalic, normal inspection Respiratory exam: Present: normal lung sounds bilaterally. Absent: respiratory distress, wheezes, rales, rhonchi, stridor Cardiovascular Exam: Present: regular rate, normal rhythm, normal heart sounds. Absent: systolic murmur, diastolic murmur, rubs, gallop, clicks Extremities exam: Present: other (There is minimal no tenderness to left hip and left knee with range of motion neurovascular intact no discoloration equal colonic warmth) Course Vital Signs 01/01/23 01/01/23 09:26 12:16 Temperature 98 F 97.6 F Pulse Rate 92 81 Respiratory 22 16 Rate Blood Pressure 175/105 160/85 O2 Sat by Pulse 99 97 Oximetry Medical Decision Making - Medical Decision Making Was pt. sent in by a medical professional or institution (, PA, CIRCULAR KNITTER HELPER, urgent care, hospital, or residential...) When possible be specific @ -No Did you speak to anyone other than the patient for history (EMS, parent, family, police, friend...)? What history was obtained from this source @ -No Did you review nursing and triage notes (agree or disagree)? Why? @ -I reviewed and agree with nursing and triage notes Were old charts reviewed (outside hosp., previous admission, EMS record, old EKG, old radiological studies, urgent care reports/EKG's, residential records)? Report findings @ -No old charts were reviewed Differential Diagnosis (chest pain, altered mental status, abdominal pain women, abdominal pain men, vaginal bleeding, weakness, fever, dyspnea, syncope, headache, dizziness, GI bleed, back pain, seizure, CVA, palpatations, mental health, musculoskeletal)? @ -nDifferential Back Pain: Strain, zoster, cauda equina syndrome, epidural abscess, vertebral osteomyelitis, discitis, fracture, subluxation, disc herniation, DJD, spinal stenosis, dissection, AAA, pancreatitis, peptic ulcer disease, pyelonephritis, kidney stone, this is not meant to be an all-inclusive list.ble EKG interpreted by me (3pts min.). @ -None X-rays interpreted by me (1pt min.). @ -X-ray of the hip, left knee shows arthritic changes no acute fracture CT interpreted by me (1pt min.). @ -None done U/S interpreted by me (1pt. min.). @ -LEFT LEG MADE FOR ACUTE DVT What testing was considered but not performed or refused? (CT, X-rays, U/S, labs)? Why? @ -None What meds were considered but not given or refused? Why? @ -None Did you discuss the management of the patient with other professionals (professionals i.e. , PA, CIRCULAR KNITTER HELPER, lab, RT, psych nurse, child welfare social worker, boiler mechanic, teacher, juvenile detention officer, onsite case manager)? Give summary @ -No Was smoking cessation discussed for >3mins.? @ -No Was critical care preformed (if so, how long)? @ -No Were there social determinants of health that impacted care today? How? (Homelessness, low income, unemployed, alcoholism, drug addiction, transportation, low edu. Level, literacy, decrease access to med. care, nursing home, rehab)? @ -No Was there de-escalation of care discussed even if they declined (Discuss DNR or withdrawal of care, Hospice)? DNR status @ -No What co-morbidities impacted this encounter? (DM, HTN, Smoking, COPD, CAD, Cancer, CVA, ARF, Chemo, Hep., AIDS, mental health diagnosis, sleep apnea, morbid obesity)? @ -Obesity Was patient admitted / discharged? Hospital course, mention meds given and route, prescriptions, significant lab abnormalities, going to OR and other pertinent info. @ -Discharge patient has left leg pain. No evidence of DVT no acute fracture. Which suggests possibility of lumbar radiculopathy and possible left knees brain. Patient follow-up with PCP return parameters were discussed. Undiagnosed new problem with uncertain prognosis? @ -No Drug Therapy requiring intensive monitoring for toxicity (Heparin, Nitro, Insulin, Cardizem)? @ -No Were any procedures done? @ -No Diagnosis/symptom? @ -Left leg pain Acute, or Chronic, or Acute on Chronic? @ -Acute Uncomplicated (without systemic symptoms) or Complicated (systemic symptoms)? @ -uncomplicated Side effects of treatment? @ -No Exacerbation, Progression, or Severe Exacerbation? @ -No Poses a threat to life or bodily function? How? (Chest pain, USA, CT, pneumonia, PE, COPD, DKA, ARF, appy, cholecystitis, CVA, Diverticulitis, Homicidal, Suicidal, threat to staff... and all critical care pts) @ -No Disposition Clinical Impression: Lumbar radiculopathy, acute, Left leg pain Disposition: HOME SELF-CARE Condition: Stable Instructions (If sedation given, give patient instructions): Leg Pain (ED) Additional Instructions: Please return to the Emergency Department if symptoms worsen or any other concerns. Prescriptions: Ibuprofen [Motrin] 600 mg PO Q8HR PRN #20 tab PRN Reason: Pain predniSONE 50 mg PO DAILY #5 tab Is patient prescribed a controlled substance at d/c from ED?: No Referrals: None,Stated [Primary Care Provider] - 1-2 days Time of Disposition: 11:59
--- NOTE | 2023-01-01 10:30 | XR ---
EXAMINATION TYPE: XR knee complete LT DATE OF EXAM: 01/01/2023 CLINICAL HISTORY: Pain. TECHNIQUE: Three views of the left knee are obtained. COMPARISON: None. FINDINGS: There is no acute fracture/dislocation evident in the left knee. Mild narrowing medial tib iofemoral compartment. No significant spurring. The overlying soft tissue appears unremarkable. IMPRESSION: As above.
--- NOTE | 2023-01-01 10:32 | XR ---
EXAMINATION TYPE: XR Hip LT and AP Pelvis DATE OF EXAM: 01/01/2023 COMPARISON: NONE HISTORY: CT abdomen and pelvis May 12, 2020 TECHNIQUE: 2 AP view of the pelvis R obtained. Two views of the left hip are obtained. FINDINGS: There is no acute fracture/dislocation evident in the pelvis. Symmetric mild axial joint s pace loss in both hips is present. Sacroiliac joints remain within normal limits. Pubic symphysis is intact. The overlying soft tissue appears unremarkable. Two views of left hip show no acute fracture or dislocation. No focal lytic or sclerotic lesion seen in the proximal left femur. The overlying soft tissue is unremarkable. IMPRESSION: As above.
--- NOTE | 2023-01-01 11:10 | US ---
EXAMINATION TYPE: US venous doppler duplex LE LT DATE OF EXAM: 01/01/2023 10:55 AM COMPARISON: 01/05/2021 CLINICAL INDICATION: Male, 42 years old with history of pain, hx of dvt; left leg pain SIDE PERFORMED: left TECHNIQUE: The lower extremity deep venous system is examined utilizing real time linear array sonog abel with graded compression, doppler sonography and color-flow sonography. VESSELS IMAGED: Common Femoral Vein Deep Femoral Vein Greater Saphenous Vein * Femoral Vein Popliteal Vein Small Saphenous Vein * Proximal Calf Veins (* superficial vessels) technical limitations due to patient's body habitus, morbidly obese Left Leg: no evidence of DVT as visualized. Unable to visualize lower femoral vein for compression IMPRESSION: Grayscale, color doppler, spectral doppler imaging performed of the deep veins of the lo wer extremities. There is normal flow, compressibility, vascular waveforms. See above for limitation s of this exam.
[2023-01-01] MEDS ORDERED: ACET/COD 300 MG/30 MG STARTER PACK 6 TAB BTL PO STA (11:58)
[2023-01-01 12:17] VITALS: BP 160/85; PULSE 81; RESP 16; TEMP 97.6
== END 2023-01-01 12:17 | disposition home or self-care (01) ==
LOC: EC 09:16
DX: M54.16 Radiculopathy, lumbar region (principal); M79.605 Pain in left leg; I10 Essential (primary) hypertension; J45.909 Unspecified asthma, uncomplicated; F41.9 Anxiety disorder, unspecified; Z79.899 Other long term (current) drug therapy
CPT/HCPCS: 73502; 99284

== ENCOUNTER → 2023-11-18 | Outpatient (CLI) | payer OTHER ==
--- NOTE | 2023-11-18 16:16 | XR ---
EXAM TYPE: LUMBAR SPINE X RAY SERIES COMPARISON: NONE HISTORY: Pain TECHNIQUE: 3 views are submitted. FINDINGS: Mild wedge deformities at the thoracolumbar junction with multilevel mild degenerative disc disease. Facet arthropathy L5-S1. Mild degenerative disc disease L5-S1. Retrolisthesis of L1-2 and L2-L3. The pedicles are intact. The transverse processes are intact. Minimal curvature of the lumbar spine. IMPRESSION: 1. Multilevel mild degenerative disc disease most marked at the thoracolumbar junction..
== END | disposition home or self-care (01) ==
LOC: RADXRMAIN 14:48
PROVIDERS: ATTEND Family Medicine
DX: M51.37 Other intervertebral disc degeneration, lumbosacral region (principal)
CPT/HCPCS: 72100

== ENCOUNTER → 2025-02-07 | Outpatient (CLI) | payer OTHER ==
--- NOTE | 2025-02-07 22:11 | XR ---
EXAMINATION TYPE: XR knee complete LT DATE OF EXAM: 02/07/2025 12:31 PM COMPARISON: None. CLINICAL INDICATION: Male, 44 years old with history of M25.562 Pain left knee, pain TECHNIQUE: 3 view(s) obtained. FINDINGS: No acute fracture or dislocation evident. No joint effusion evident. Joint spaces are preserved Follow up exams can be performed 7-10 days from acute trauma for continued pain IMPRESSION: 1. No acute osseous abnormality left knee [facility], , 02/07/2025 10:09 PM
== END | disposition home or self-care (01) ==
LOC: RADXRMAIN 12:13
PROVIDERS: ATTEND Internal Medicine Geriatric Medicine
DX: M25.562 Pain in left knee (principal)